=== PATIENT | male | born 1950 | race Asian ===

== ENCOUNTER 2021-08-21 07:06 | Inpatient (IN) | payer MEDICARE, OTHER ==
[~2021-08-21] VITALS: Ht 167.6 cm; Wt 77.1 kg
[2021-08-21] MEDS ORDERED: CARV12.530 PO (07:31)
[2021-08-21] MEDS ORDERED: ISOS60TA58 PO (07:31)
[2021-08-21] MEDS ORDERED: CALC667T8 PO (07:48)
[2021-08-21] MEDS ORDERED: ALLO100T PO (07:48)
[2021-08-21] MEDS ORDERED: ATOR40TA71 PO (07:48)
[2021-08-21] MEDS ORDERED: SIME80TA13 PO (07:48)
[2021-08-21] MEDS ORDERED: ASPI-1450 PO (07:48)
[2021-08-21] MEDS ORDERED: POLY250020 PO (07:48)
[2021-08-21] MEDS ORDERED: FOLI0.8T7 PO (07:48)
[2021-08-21] MEDS ORDERED: NIFE60TA85 PO (07:48)
[2021-08-21] MEDS ORDERED: FAMO20 PO (07:48)
[2021-08-21] MEDS ORDERED: CLOP75TA60 PO (07:48)
[2021-08-21] MEDS ORDERED: SEVE800T7 PO (07:48)
[2021-08-21] MEDS ORDERED: CALC500T37 PO (07:48)
[2021-08-21 07:50] LABS: HEMATOCRIT 31.3 % (41-53); HEMOGLOBIN 10.5 g/dL (13.5-17.5); MEAN CORPUSCULAR HEMOGLOBIN 32.9 pg (26.0-34.0); MEAN CORPUSCULAR HGB CONC 33.6 G/dL (31.0-37.0); MEAN CORPUSCULAR VOLUME 98 fL (80-100); PLATELET COUNT (AUTO) 191 K/uL (150-450); RED BLOOD CELL COUNT(AUTO) 3.19 MIL/uL (4.50-5.90); RED CELL DISTRIBUTION WIDTH 13.6 % (11.5-14.5)
[2021-08-21 07:59] LABS: CALCIUM, TOTAL 8.7 mg/dL (8.8-10.5); CREATININE 11.11 mg/dL (0.60-1.30); POTASSIUM 5.2 mmol/L (3.5-5.1)
[2021-08-21 08:05] LABS: ALBUMIN 3.3 g/dL (3.4-5.0); BILIRUBIN,TOTAL 0.6 mg/dL (0.1-1.0); TOTAL PROTEIN, SERUM 8.1 g/dL (6.4-8.2)
[2021-08-21 08:13] LABS: PROTHROMBIN TIME 10.9 SEC (9.4-11.6)
[2021-08-21] MEDS ORDERED: TICAGRELOR 90 MG TABLET PO ONE (09:00)
[2021-08-21] MEDS ORDERED: MORPHINE SULFATE 4 MG/ML SYRINGE IVP ONE (09:00)
[2021-08-21] MEDS ORDERED: ATORVASTATIN CALCIUM 40 MG TABLET PO ONE (09:00)
[2021-08-21 09:17] LABS: COVID AG,FIA SOURCE NASAL SWAB
[2021-08-21 10:10] LABS: BAND NEUTROPHILS % (MANUAL) 1 % (0-5); EOSINOPHILS % (MANUAL) 14 % (1-6); LYMPHOCYTES % (MANUAL) 32 % (22-44); MONOCYTES % (MANUAL) 2 % (2-9); SEGMENTED NEUTROPHILS % 51 % (40-70)
[2021-08-21] MEDS ORDERED: MORPHINE SULFATE 2 MG/ML SYRINGE IVP PRN (12:00)
[2021-08-21] MEDS ORDERED: ONDANSETRON HCL 4 MG/2 ML VIAL IVP PRN (12:00)
[2021-08-21] MEDS ORDERED: ZOLPIDEM TARTRATE 5 MG TABLET PO PRN (12:00)
[2021-08-21] MEDS ORDERED: MAGNESIUM HYDROXIDE SUSPENSION 30 ML UDCUP PO PRN (12:00)
[2021-08-21] MEDS ORDERED: BISACODYL 10 MG RECTAL RECTAL SUPPOSITORY PR PRN (12:00)
[2021-08-21 12:21] LABS: D-DIMER 0.79 mg/L FEU (0.00-0.50)
[2021-08-21] MEDS: HEPARIN SODIUM,PORCINE 5,000 UNITS/ML VIAL SQ SCH (17:02)
[2021-08-21 18:04] VITALS: BP 137/69
[2021-08-21 20:28] VITALS: BP 148/70
[2021-08-21] MEDS: DOCUSATE SODIUM 100 MG CAPSULE PO SCH (20:38)
[2021-08-21] MEDS: TICAGRELOR 90 MG TABLET PO SCH (20:38)
[2021-08-21] MEDS: SEVELAMER CARBONATE 800 MG TABLET PO SCH (20:38)
[2021-08-21] MEDS ORDERED: CARVEDILOL 12.5 MG TABLET PO SCH (21:00)
[2021-08-21] MEDS: NIFEdipine 30 MG ER TABLET PO SCH (22:52)
[2021-08-22] VITALS (29 sets, daily range): BP systolic 107–178; BP diastolic 58–157
[2021-08-22] MEDS: HEPARIN SODIUM,PORCINE 5,000 UNITS/ML VIAL SQ SCH ×2 (00:41→09:26)
[2021-08-22] MEDS: NITROGLYCERIN 0.4 MG SUBLINGUAL TABLET #25 SL PRN ×2 (05:08→14:30)
[2021-08-22 07:01] LABS: GLUCOMETER DEV NAME(LOC) 5S.2B; GLUCOSE,POINT OF CARE 72 MG/DL (70-110)
[2021-08-22 08:18] LABS: BASOPHILS % (AUTO) 0.7 % (0.0-2.0); EOSINOPHILS % (AUTO) 13.4 % (1.0-6.0); HEMATOCRIT 31.8 % (41-53); HEMOGLOBIN 10.8 g/dL (13.5-17.5); LYMPHOCYTES % (AUTO) 15.6 % (22.0-44.0); MEAN CORPUSCULAR HEMOGLOBIN 33.1 pg (26.0-34.0); MEAN CORPUSCULAR HGB CONC 33.8 G/dL (31.0-37.0); MEAN CORPUSCULAR VOLUME 98 fL (80-100); MONOCYTES # (AUTO) 0.4 K/uL (0.1-1.0); MONOCYTES % (AUTO) 6.5 % (2.0-9.0); NEUTROPHILS # (AUTO) 4.1 K/uL (1.8-7.7); NEUTROPHILS % (AUTO) 63.8 % (40.0-70.0); PLATELET COUNT (AUTO) 203 K/uL (150-450); RED BLOOD CELL COUNT(AUTO) 3.25 MIL/uL (4.50-5.90); RED CELL DISTRIBUTION WIDTH 13.5 % (11.5-14.5)
[2021-08-22 08:37] LABS: ALBUMIN 3.4 g/dL (3.4-5.0); BILIRUBIN,TOTAL 0.6 mg/dL (0.1-1.0); CALCIUM, TOTAL 8.8 mg/dL (8.8-10.5); CREATININE 13.33 mg/dL (0.60-1.30); MAGNESIUM 2.8 mg/dL (1.80-2.40); TOTAL PROTEIN, SERUM 8.1 g/dL (6.4-8.2)
[2021-08-22 08:44] LABS: POTASSIUM 6.2 mmol/L (3.5-5.1)
[2021-08-22] MEDS ORDERED: PANTOPRAZOLE SODIUM 40 MG DR TABLET PO SCH (09:00)
[2021-08-22] MEDS: DOCUSATE SODIUM 100 MG CAPSULE PO SCH ×2 (09:24→21:06)
[2021-08-22] MEDS: SEVELAMER CARBONATE 800 MG TABLET PO SCH ×3 (09:25→18:46)
[2021-08-22] MEDS: ATORVASTATIN CALCIUM 40 MG TABLET PO SCH (09:25)
[2021-08-22] MEDS: ASPIRIN 81 MG CHEWABLE TABLET PO SCH (09:25)
[2021-08-22] MEDS: ISOSORBIDE MONONITRATE 60 MG ER TABLET PO SCH (09:26)
[2021-08-22] MEDS: NIFEdipine 30 MG ER TABLET PO SCH ×2 (09:26→21:07)
[2021-08-22] MEDS: TICAGRELOR 90 MG TABLET PO SCH ×2 (09:26→21:06)
[2021-08-22] MEDS: ALLOPURINOL 100 MG TABLET PO SCH (09:26)
[2021-08-22] MEDS ORDERED: SODIUM CHLORIDE 0.9% 1,000 ML ONE (09:58)
[2021-08-22] MEDS ORDERED: HEPARIN SODIUM 25000 UNITS/D5W 250 ML IV PRN (10:30)
[2021-08-22] MEDS ORDERED: HEPARIN SODIUM,PORCINE 5,000 UNITS/ML VIAL IVP PRN ×2 (10:30)
[2021-08-22] MEDS ORDERED: HEPARIN SODIUM,PORCINE 5,000 UNITS/ML VIAL IVP ONE ×3 (10:30→16:30)
[2021-08-22 11:05] LABS: PROTHROMBIN TIME 10.6 SEC (9.4-11.6)
[2021-08-22] MEDS ORDERED: HEPARIN SODIUM 1000 UNITS/NS 1,000 ML ONE (13:37)
[2021-08-22] MEDS ORDERED: IOHEXOL 300 MG/ML 50 ML VIAL ONE (13:37)
[2021-08-22] MEDS ORDERED: LIDOCAINE/PF 1% 30 ML VIAL ONE (13:37)
[2021-08-22] MEDS ORDERED: IOHEXOL 300 MG/ML 150 ML VIAL ONE ×2 (13:37→15:31)
[2021-08-22] MEDS ORDERED: IOHEXOL 300 MG/ML 100 ML VIAL ONE (13:37)
[2021-08-22] MEDS ORDERED: SODIUM BICARBONATE 50 MEQ/50 ML VIAL ONE (13:37)
[2021-08-22 13:51] LABS: GLUCOMETER DEV NAME(LOC) 5S.2B; GLUCOSE,POINT OF CARE 92 MG/DL (70-110)
[2021-08-22] MEDS ORDERED: FentaNYL CITRATE PF 100 MCG/2 ML VIAL ONE (15:03)
[2021-08-22] MEDS ORDERED: MIDAZOLAM HCL 2 MG/2 ML VIAL ONE (15:04)
[2021-08-22] MEDS ORDERED: VERAPAMIL HCL 2.5 MG/ML 2 ML VIAL ONE (15:12)
[2021-08-22] MEDS ORDERED: FentaNYL CITRATE PF 100 MCG/2 ML VIAL IVP ONE (15:15)
[2021-08-22] MEDS ORDERED: SODIUM CHLORIDE 0.9% 500 ML IV ONE (15:15)
[2021-08-22] MEDS ORDERED: HEPARIN SODIUM 1000 UNITS/NS 1,000 ML IARTER ONE (15:15)
[2021-08-22] MEDS ORDERED: IOHEXOL 300 MG/ML 150 ML VIAL ICOR ONE (15:15)
[2021-08-22] MEDS ORDERED: LIDOCAINE 1% 30 ML/SOD BICARB 8.4% 4 ML SQ ONE (15:15)
[2021-08-22] MEDS ORDERED: MIDAZOLAM HCL 2 MG/2 ML VIAL IVP ONE (15:15)
[2021-08-22] MEDS ORDERED: NITROGLYCERIN 50 MG/D5% WATER 0 ML ONE (15:19)
[2021-08-22] MEDS ORDERED: HydrALAZINE HCL 20 MG/ML VIAL ONE (15:22)
[2021-08-22] MEDS ORDERED: HydrALAZINE HCL 20 MG/ML VIAL IVP ONE (15:30)
[2021-08-22] MEDS ORDERED: ADENOSINE 3 MG/ML 2 ML VIAL ONE (15:51)
[2021-08-22] MEDS ORDERED: HEPARIN SODIUM 1000 UNITS/NS 500 ML ONE (15:58)
[2021-08-22] MEDS ORDERED: SIMETHICONE 80 MG CHEWABLE TABLET CHEW PRN (18:30)
[2021-08-22] MEDS: HYDROCODONE/ACETAMINOPHEN 5-325 MG TABLET PO PRN (18:46)
[2021-08-22 21:06] LABS: GLUCOMETER DEV NAME(LOC) 5S.1B; GLUCOSE,POINT OF CARE 87 MG/DL (70-110)
[2021-08-22] MEDS: CARVEDILOL 6.25 MG TABLET PO SCH (21:07)
[2021-08-22] MEDS: FAMOTIDINE 20 MG TABLET PO SCH (21:07)
[2021-08-22] MEDS: OMEGA-3/DHA/EPA/FISH OIL 1,000 MG CAPSULE PO SCH (21:54)
[2021-08-22] MEDS ORDERED: HEPARIN SODIUM,PORCINE 1,000 UNITS/ML VIAL IVP ONE (22:51)
[2021-08-23] VITALS (13 sets, daily range): BP systolic 113–149; BP diastolic 49–77
[2021-08-23 00:16] LABS: GLUCOMETER DEV NAME(LOC) 5S.2B; GLUCOSE,POINT OF CARE 183 MG/DL (70-110)
[2021-08-23] MEDS: NIFEdipine 30 MG ER TABLET PO SCH ×2 (08:10→23:49)
[2021-08-23] MEDS: DOCUSATE SODIUM 100 MG CAPSULE PO SCH ×2 (08:10→20:59)
[2021-08-23] MEDS: OMEGA-3/DHA/EPA/FISH OIL 1,000 MG CAPSULE PO SCH ×2 (08:10→20:59)
[2021-08-23 08:11] LABS: BASOPHILS % (AUTO) 0.3 % (0.0-2.0); EOSINOPHILS % (AUTO) 10.7 % (1.0-6.0); HEMOGLOBIN 10.3 g/dL (13.5-17.5); LYMPHOCYTES # (AUTO) 0.4 K/uL (1.0-4.8); LYMPHOCYTES % (AUTO) 5.9 % (22.0-44.0); MEAN CORPUSCULAR HEMOGLOBIN 33.4 pg (26.0-34.0); MEAN CORPUSCULAR HGB CONC 34.2 G/dL (31.0-37.0); MEAN CORPUSCULAR VOLUME 98 fL (80-100); MONOCYTES # (AUTO) 0.4 K/uL (0.1-1.0); NEUTROPHILS # (AUTO) 4.7 K/uL (1.8-7.7); NEUTROPHILS % (AUTO) 77.1 % (40.0-70.0); PLATELET COUNT (AUTO) 170 K/uL (150-450); RED BLOOD CELL COUNT(AUTO) 3.08 MIL/uL (4.50-5.90); RED CELL DISTRIBUTION WIDTH 13.7 % (11.5-14.5)
[2021-08-23] MEDS: ALLOPURINOL 100 MG TABLET PO SCH (08:11)
[2021-08-23] MEDS: TICAGRELOR 90 MG TABLET PO SCH ×2 (08:11→20:59)
[2021-08-23] MEDS: ISOSORBIDE MONONITRATE 60 MG ER TABLET PO SCH (08:11)
[2021-08-23] MEDS: FAMOTIDINE 20 MG TABLET PO SCH ×2 (08:11→20:59)
[2021-08-23] MEDS: ATORVASTATIN CALCIUM 40 MG TABLET PO SCH (08:12)
[2021-08-23] MEDS: CARVEDILOL 6.25 MG TABLET PO SCH ×2 (08:12→23:49)
[2021-08-23] MEDS: SEVELAMER CARBONATE 800 MG TABLET PO SCH ×3 (08:12→17:47)
[2021-08-23] MEDS: ASPIRIN 81 MG CHEWABLE TABLET PO SCH (08:12)
[2021-08-23 08:24] LABS: CALCIUM, TOTAL 8.8 mg/dL (8.8-10.5); CREATININE 9.52 mg/dL (0.60-1.30); POTASSIUM 5.6 mmol/L (3.5-5.1)
[2021-08-23 12:01] LABS: GLUCOMETER DEV NAME(LOC) 5N.1C; GLUCOSE,POINT OF CARE 142 MG/DL (70-110)
[2021-08-23 12:01] LABS: GLUCOMETER DEV NAME(LOC) 5N.1C; GLUCOSE,POINT OF CARE 84 MG/DL (70-110)
[2021-08-23 19:56] LABS: GLUCOMETER DEV NAME(LOC) 5S.1B; GLUCOSE,POINT OF CARE 84 MG/DL (70-110)
[2021-08-23 23:41] LABS: GLUCOMETER DEV NAME(LOC) 5S.2B; GLUCOSE,POINT OF CARE 137 MG/DL (70-110)
[2021-08-24] VITALS (19 sets, daily range): BP systolic 106–189; BP diastolic 59–80
[2021-08-24] MEDS ORDERED: DEXTROSE 50%-WATER 25 GM/50 ML SYRINGE IVP ONE ×3 (06:36→08:45)
[2021-08-24] MEDS ORDERED: SODIUM CHLORIDE 0.9% 1,000 ML ONE (07:35)
[2021-08-24 07:39] LABS: BASOPHILS % (AUTO) 0.1 % (0.0-2.0); EOSINOPHILS % (AUTO) 13.2 % (1.0-6.0); HEMATOCRIT 29.7 % (41-53); HEMOGLOBIN 9.9 g/dL (13.5-17.5); LYMPHOCYTES # (AUTO) 0.6 K/uL (1.0-4.8); LYMPHOCYTES % (AUTO) 10.9 % (22.0-44.0); MEAN CORPUSCULAR HEMOGLOBIN 32.9 pg (26.0-34.0); MEAN CORPUSCULAR HGB CONC 33.5 G/dL (31.0-37.0); MEAN CORPUSCULAR VOLUME 98 fL (80-100); MONOCYTES # (AUTO) 0.5 K/uL (0.1-1.0); MONOCYTES % (AUTO) 9.5 % (2.0-9.0); NEUTROPHILS # (AUTO) 3.7 K/uL (1.8-7.7); NEUTROPHILS % (AUTO) 66.3 % (40.0-70.0); PLATELET COUNT (AUTO) 156 K/uL (150-450); RED BLOOD CELL COUNT(AUTO) 3.02 MIL/uL (4.50-5.90); RED CELL DISTRIBUTION WIDTH 13.9 % (11.5-14.5)
[2021-08-24 07:41] LABS: CREATININE 7.48 mg/dL (0.60-1.30); POTASSIUM 4.9 mmol/L (3.5-5.1)
[2021-08-24 07:42] LABS: CALCIUM, TOTAL 8.6 mg/dL (8.8-10.5)
[2021-08-24] MEDS ORDERED: DEXTROSE 5%-0.45% SODIUM CHL 1,000 ML IV STA (08:36)
[2021-08-24 08:41] LABS: GLUCOMETER DEV NAME(LOC) 5N.1C; GLUCOSE,POINT OF CARE 187 MG/DL (70-110)
[2021-08-24] MEDS ORDERED: IOHEXOL 300 MG/ML 100 ML VIAL ONE (09:06)
[2021-08-24] MEDS ORDERED: LIDOCAINE/PF 1% 30 ML VIAL ONE (09:06)
[2021-08-24] MEDS ORDERED: HEPARIN SODIUM 1000 UNITS/NS 1,000 ML ONE (09:06)
[2021-08-24] MEDS ORDERED: SODIUM BICARBONATE 50 MEQ/50 ML VIAL ONE (09:06)
[2021-08-24] MEDS ORDERED: IOHEXOL 300 MG/ML 150 ML VIAL ONE (09:06)
[2021-08-24] MEDS ORDERED: IOHEXOL 300 MG/ML 50 ML VIAL ONE (09:06)
[2021-08-24] MEDS ORDERED: VERAPAMIL HCL 2.5 MG/ML 2 ML VIAL ONE ×2 (10:05→10:41)
[2021-08-24] MEDS ORDERED: NITROGLYCERIN 50 MG/D5% WATER 250 ML ONE ×2 (10:05→10:41)
[2021-08-24] MEDS ORDERED: 0.9% SODIUM CHLORIDE 10 ML SYRINGE IVP ONE (10:06)
[2021-08-24] MEDS ORDERED: MIDAZOLAM HCL 2 MG/2 ML VIAL ONE (10:22)
[2021-08-24] MEDS ORDERED: FentaNYL CITRATE PF 100 MCG/2 ML VIAL ONE (10:22)
[2021-08-24 10:36] LABS: GLUCOMETER DEV NAME(LOC) CATH.; GLUCOSE,POINT OF CARE 110 MG/DL (70-110)
[2021-08-24] MEDS ORDERED: HEPARIN SODIUM,PORCINE 1,000 UNITS/ML 10 ML VIAL ONE (10:41)
[2021-08-24] MEDS ORDERED: FentaNYL CITRATE PF 100 MCG/2 ML VIAL IVP ONE (11:00)
[2021-08-24] MEDS ORDERED: NITROGLYCERIN/D5W 50 MG/250 ML IV BOTTLE IARTER ONE (11:00)
[2021-08-24] MEDS ORDERED: MIDAZOLAM HCL 2 MG/2 ML VIAL IVP ONE (11:00)
[2021-08-24] MEDS ORDERED: VERAPAMIL HCL 2.5 MG/ML 2 ML VIAL IARTER ONE (11:00)
[2021-08-24] MEDS ORDERED: HEPARIN SODIUM,PORCINE 1,000 UNITS/ML 10 ML VIAL IARTER ONE (11:00)
[2021-08-24] MEDS ORDERED: HEPARIN SODIUM 1000 UNITS/NS 1,000 ML IARTER ONE (11:00)
[2021-08-24] MEDS ORDERED: SODIUM CHLORIDE 0.9% 500 ML IV ONE (11:00)
[2021-08-24] MEDS ORDERED: LIDOCAINE 1% 30 ML/SOD BICARB 8.4% 4 ML SQ ONE (11:00)
[2021-08-24] MEDS ORDERED: IOHEXOL 300 MG/ML 150 ML VIAL ICOR ONE (11:00)
[2021-08-24] MEDS ORDERED: HEPARIN SODIUM,PORCINE 5,000 UNITS/ML VIAL IVP ONE (11:15)
[2021-08-24] MEDS ORDERED: IOHEXOL 300 MG/ML 50 ML VIAL ICOR ONE (11:30)
[2021-08-24] MEDS ORDERED: IOHEXOL 300 MG/ML 100 ML VIAL ICOR ONE (11:30)
[2021-08-24] MEDS ORDERED: TICAGRELOR 90 MG TABLET ONE (11:33)
[2021-08-24] MEDS ORDERED: ASPIRIN 81 MG CHEWABLE TABLET ONE (11:33)
[2021-08-24] MEDS: ASPIRIN 81 MG CHEWABLE TABLET PO SCH ×2 (11:34→12:12)
[2021-08-24] MEDS: TICAGRELOR 90 MG TABLET PO SCH ×2 (11:34→20:53)
[2021-08-24] MEDS: ISOSORBIDE MONONITRATE 60 MG ER TABLET PO SCH (12:11)
[2021-08-24] MEDS: SEVELAMER CARBONATE 800 MG TABLET PO SCH ×3 (12:11→20:54)
[2021-08-24] MEDS: OMEGA-3/DHA/EPA/FISH OIL 1,000 MG CAPSULE PO SCH ×2 (12:11→20:54)
[2021-08-24] MEDS: NIFEdipine 30 MG ER TABLET PO SCH ×2 (12:12→20:54)
[2021-08-24] MEDS: ATORVASTATIN CALCIUM 40 MG TABLET PO SCH (12:12)
[2021-08-24] MEDS: CARVEDILOL 6.25 MG TABLET PO SCH ×2 (12:13→21:00)
[2021-08-24] MEDS: DOCUSATE SODIUM 100 MG CAPSULE PO SCH ×2 (12:13→20:54)
[2021-08-24] MEDS: ALLOPURINOL 100 MG TABLET PO SCH (12:13)
[2021-08-24] MEDS: FAMOTIDINE 20 MG TABLET PO SCH ×2 (12:13→20:54)
[2021-08-24 13:46] LABS: GLUCOMETER DEV NAME(LOC) 5S.2B; GLUCOSE,POINT OF CARE 53 MG/DL (70-110)
[2021-08-24] MEDS: NITROGLYCERIN 0.4 MG SUBLINGUAL TABLET #25 SL PRN (15:19)
[2021-08-24] MEDS: ACETAMINOPHEN 325 MG TABLET PO PRN (20:54)
[2021-08-25] VITALS (8 sets, daily range): BP systolic 89–148; BP diastolic 48–72
[2021-08-25] MEDS ORDERED: SODIUM CHLORIDE 0.9% 500 ML IV ONE
[2021-08-25 05:16] LABS: GLUCOMETER DEV NAME(LOC) 5S.2B; GLUCOSE,POINT OF CARE 143 MG/DL (70-110)
[2021-08-25 06:31] LABS: GLUCOMETER DEV NAME(LOC) 5S.1B; GLUCOSE,POINT OF CARE 81 MG/DL (70-110)
[2021-08-25 06:31] LABS: GLUCOMETER DEV NAME(LOC) 5S.1B; GLUCOSE,POINT OF CARE 83 MG/DL (70-110)
[2021-08-25 06:31] LABS: GLUCOMETER DEV NAME(LOC) 5S.1B; GLUCOSE,POINT OF CARE 165 MG/DL (70-110)
[2021-08-25 06:32] LABS: GLUCOMETER DEV NAME(LOC) 5S.1B; GLUCOSE,POINT OF CARE 125 MG/DL (70-110)
[2021-08-25 06:32] LABS: GLUCOMETER DEV NAME(LOC) 5S.1B; GLUCOSE,POINT OF CARE 106 MG/DL (70-110)
[2021-08-25] MEDS: DOCUSATE SODIUM 100 MG CAPSULE PO SCH ×2 (08:17→20:24)
[2021-08-25] MEDS: TICAGRELOR 90 MG TABLET PO SCH ×2 (08:17→20:24)
[2021-08-25] MEDS: ALLOPURINOL 100 MG TABLET PO SCH (08:18)
[2021-08-25] MEDS: OMEGA-3/DHA/EPA/FISH OIL 1,000 MG CAPSULE PO SCH ×2 (08:18→20:22)
[2021-08-25] MEDS: SEVELAMER CARBONATE 800 MG TABLET PO SCH ×3 (08:18→18:10)
[2021-08-25] MEDS: ATORVASTATIN CALCIUM 40 MG TABLET PO SCH (08:18)
[2021-08-25] MEDS: NIFEdipine 30 MG ER TABLET PO SCH ×3 (08:18→21:00)
[2021-08-25] MEDS: CARVEDILOL 6.25 MG TABLET PO SCH ×2 (08:18→20:24)
[2021-08-25] MEDS: ISOSORBIDE MONONITRATE 60 MG ER TABLET PO SCH (08:18)
[2021-08-25] MEDS: FAMOTIDINE 20 MG TABLET PO SCH ×2 (08:18→20:24)
[2021-08-25] MEDS: ACETAMINOPHEN 325 MG TABLET PO PRN ×2 (08:19→18:35)
[2021-08-25 10:01] LABS: GLUCOMETER DEV NAME(LOC) 5N.1C; GLUCOSE,POINT OF CARE 105 MG/DL (70-110)
[2021-08-25 10:29] LABS: CALCIUM, TOTAL 8.7 mg/dL (8.8-10.5); CREATININE 7.25 mg/dL (0.60-1.30); POTASSIUM 5.4 mmol/L (3.5-5.1)
[2021-08-25 11:02] LABS: BASOPHILS % (AUTO) 0.2 % (0.0-2.0); EOSINOPHILS % (AUTO) 6.8 % (1.0-6.0); HEMATOCRIT 29.6 % (41-53); HEMOGLOBIN 9.9 g/dL (13.5-17.5); LYMPHOCYTES # (AUTO) 0.5 K/uL (1.0-4.8); LYMPHOCYTES % (AUTO) 5.3 % (22.0-44.0); MEAN CORPUSCULAR HGB CONC 33.3 G/dL (31.0-37.0); MEAN CORPUSCULAR VOLUME 99 fL (80-100); MONOCYTES # (AUTO) 0.7 K/uL (0.1-1.0); MONOCYTES % (AUTO) 7.9 % (2.0-9.0); NEUTROPHILS % (AUTO) 79.8 % (40.0-70.0); PLATELET COUNT (AUTO) 150 K/uL (150-450); RED BLOOD CELL COUNT(AUTO) 2.99 MIL/uL (4.50-5.90); RED CELL DISTRIBUTION WIDTH 13.8 % (11.5-14.5)
[2021-08-25] MEDS ORDERED: CETIRIZINE HCL 10 MG TABLET PO ONE (12:45)
[2021-08-25] MEDS: DOCOSANOL 10% 2 GM CREAM TP SCH ×3 (14:46→20:21)
[2021-08-25] MEDS: HYDROCORTISONE 2.5% 30 GM CREAM TP SCH ×2 (14:46→20:21)
[2021-08-25] MEDS: CALCIUM CARBONATE 500 MG CHEWABLE TABLET CHEW PRN (18:10)
[2021-08-25 18:17] LABS: GLUCOMETER DEV NAME(LOC) 5S.2B; GLUCOSE,POINT OF CARE 98 MG/DL (70-110)
[2021-08-25 18:17] LABS: GLUCOMETER DEV NAME(LOC) 5S.1B; GLUCOSE,POINT OF CARE 104 MG/DL (70-110)
[2021-08-25] MEDS: NITROGLYCERIN 0.4 MG SUBLINGUAL TABLET #25 SL PRN ×3 (18:36→18:46)
[2021-08-25] MEDS: PANTOPRAZOLE SODIUM 40 MG DR TABLET PO SCH (20:24)
[2021-08-25 21:30] LABS: GLUCOMETER DEV NAME(LOC) 5S.1B; GLUCOSE,POINT OF CARE 158 MG/DL (70-110)
[2021-08-25] MEDS: HYDROCODONE/ACETAMINOPHEN 5-325 MG TABLET PO PRN (22:27)
[2021-08-26] VITALS (15 sets, daily range): BP systolic 106–162; BP diastolic 55–82
[2021-08-26] MEDS: DOCOSANOL 10% 2 GM CREAM TP SCH ×5 (05:10→21:22)
[2021-08-26 07:33] LABS: BASOPHILS % (AUTO) 0.4 % (0.0-2.0); EOSINOPHILS % (AUTO) 11.4 % (1.0-6.0); HEMATOCRIT 28.1 % (41-53); HEMOGLOBIN 9.5 g/dL (13.5-17.5); LYMPHOCYTES # (AUTO) 0.7 K/uL (1.0-4.8); LYMPHOCYTES % (AUTO) 11.2 % (22.0-44.0); MEAN CORPUSCULAR HEMOGLOBIN 33.2 pg (26.0-34.0); MEAN CORPUSCULAR HGB CONC 33.8 G/dL (31.0-37.0); MEAN CORPUSCULAR VOLUME 98 fL (80-100); MONOCYTES # (AUTO) 0.8 K/uL (0.1-1.0); MONOCYTES % (AUTO) 11.9 % (2.0-9.0); NEUTROPHILS # (AUTO) 4.3 K/uL (1.8-7.7); NEUTROPHILS % (AUTO) 65.1 % (40.0-70.0); PLATELET COUNT (AUTO) 137 K/uL (150-450); RED BLOOD CELL COUNT(AUTO) 2.86 MIL/uL (4.50-5.90); RED CELL DISTRIBUTION WIDTH 13.9 % (11.5-14.5)
[2021-08-26 07:36] LABS: CALCIUM, TOTAL 9.1 mg/dL (8.8-10.5); CREATININE 10.16 mg/dL (0.60-1.30); POTASSIUM 5.5 mmol/L (3.5-5.1)
[2021-08-26 07:42] LABS: ALBUMIN 2.9 g/dL (3.4-5.0); BILIRUBIN,TOTAL 0.4 mg/dL (0.1-1.0); TOTAL PROTEIN, SERUM 7.8 g/dL (6.4-8.2)
[2021-08-26] MEDS: SEVELAMER CARBONATE 800 MG TABLET PO SCH ×3 (08:09→17:34)
[2021-08-26] MEDS: PANTOPRAZOLE SODIUM 40 MG DR TABLET PO SCH (08:09)
[2021-08-26] MEDS: TICAGRELOR 90 MG TABLET PO SCH ×2 (08:09→21:18)
[2021-08-26] MEDS: OMEGA-3/DHA/EPA/FISH OIL 1,000 MG CAPSULE PO SCH ×2 (08:09→21:20)
[2021-08-26] MEDS: ASPIRIN 81 MG CHEWABLE TABLET PO SCH (08:10)
[2021-08-26] MEDS: FAMOTIDINE 20 MG TABLET PO SCH ×2 (08:10→21:21)
[2021-08-26] MEDS: ATORVASTATIN CALCIUM 40 MG TABLET PO SCH (08:10)
[2021-08-26] MEDS: ALLOPURINOL 100 MG TABLET PO SCH (08:12)
[2021-08-26] MEDS: DOCUSATE SODIUM 100 MG CAPSULE PO SCH ×2 (09:00→21:19)
[2021-08-26] MEDS ORDERED: CETIRIZINE HCL 10 MG TABLET PO ONE (10:00)
[2021-08-26] MEDS ORDERED: MethylPREDNISolone SOD SUCC 40 MG/ML VIAL IVP SCH ×2 (10:30→16:00)
[2021-08-26] MEDS: HYDROCORTISONE 2.5% 30 GM CREAM TP SCH ×2 (10:51→21:21)
[2021-08-26] MEDS ORDERED: MethylPREDNISolone SOD SUCC 125 MG/2 ML VIAL IVP ONE (11:30)
[2021-08-26 12:17] LABS: GLUCOMETER DEV NAME(LOC) 5S.1B; GLUCOSE,POINT OF CARE 112 MG/DL (70-110)
[2021-08-26 12:17] LABS: GLUCOMETER DEV NAME(LOC) 5S.1B; GLUCOSE,POINT OF CARE 102 MG/DL (70-110)
[2021-08-26 12:21] LABS: GLUCOMETER DEV NAME(LOC) 5N.3; GLUCOSE,POINT OF CARE 126 MG/DL (70-110)
[2021-08-26] MEDS: NITROGLYCERIN 0.4 MG SUBLINGUAL TABLET #25 SL PRN ×2 (12:55→16:44)
[2021-08-26] MEDS: NIFEdipine 30 MG ER TABLET PO SCH ×2 (17:20→21:00)
[2021-08-26] MEDS: CARVEDILOL 6.25 MG TABLET PO SCH ×2 (17:20→21:19)
[2021-08-26] MEDS: ISOSORBIDE MONONITRATE 60 MG ER TABLET PO SCH (17:21)
[2021-08-26] MEDS: MethylPREDNISolone SOD SUCC 40 MG/ML VIAL IVP SCH ×2 (17:34→23:44)
[2021-08-26 19:41] LABS: GLUCOMETER DEV NAME(LOC) 5N.3; GLUCOSE,POINT OF CARE 201 MG/DL (70-110)
[2021-08-26] MEDS: MAALOX/LIDOCAINE/NYSTATIN SUSP 5 ML ORAL.SYG MM SCH ×2 (21:18→21:23)
[2021-08-26] MEDS: HYPROMELLOSE 0.5% 15 ML OPHTHALMIC SOLUTION OU SCH (21:18)
[2021-08-26] MEDS: CLOBETASOL 0.05% 15 GM OINTMENT TP SCH (21:21)
[2021-08-26] MEDS ORDERED: INSULIN LISPRO 100 UNITS/ML SQ PRN (22:15)
[2021-08-26] MEDS ORDERED: DEXTROSE 50%-WATER 25 GM/50 ML SYRINGE IVP PRN (22:15)
[2021-08-26] MEDS: INSULIN LISPRO 100 UNITS/ML SQ PRN (22:19)
[2021-08-26] MEDS: HYDROCODONE/ACETAMINOPHEN 5-325 MG TABLET PO PRN (23:44)
[2021-08-27] VITALS (14 sets, daily range): BP systolic 100–147; BP diastolic 52–81
[2021-08-27 05:21] LABS: GLUCOMETER DEV NAME(LOC) 5S.1B; GLUCOSE,POINT OF CARE 393 MG/DL (70-110)
[2021-08-27] MEDS: DOCOSANOL 10% 2 GM CREAM TP SCH ×5 (06:05→20:38)
[2021-08-27] MEDS: INSULIN LISPRO 100 UNITS/ML SQ PRN ×3 (06:16→23:32)
[2021-08-27] MEDS ORDERED: EPOETIN ALFA 10,000 UNITS/ML 2 ML VIAL SQ SCH (09:00)
[2021-08-27] MEDS: NIFEdipine 30 MG ER TABLET PO SCH ×2 (09:00→20:36)
[2021-08-27 09:16] LABS: GLUCOMETER DEV NAME(LOC) 5S.2B; GLUCOSE,POINT OF CARE 160 MG/DL (70-110)
[2021-08-27] MEDS: OMEGA-3/DHA/EPA/FISH OIL 1,000 MG CAPSULE PO SCH ×2 (09:34→20:36)
[2021-08-27] MEDS: SEVELAMER CARBONATE 800 MG TABLET PO SCH ×3 (09:35→20:36)
[2021-08-27] MEDS: ASPIRIN 81 MG CHEWABLE TABLET PO SCH (09:35)
[2021-08-27] MEDS: ISOSORBIDE MONONITRATE 60 MG ER TABLET PO SCH (09:37)
[2021-08-27] MEDS: ACETAMINOPHEN 325 MG TABLET PO PRN (09:39)
[2021-08-27] MEDS: ATORVASTATIN CALCIUM 40 MG TABLET PO SCH (09:39)
[2021-08-27] MEDS: FAMOTIDINE 20 MG TABLET PO SCH ×2 (09:40→20:36)
[2021-08-27] MEDS: TICAGRELOR 90 MG TABLET PO SCH ×2 (09:43→20:37)
[2021-08-27] MEDS: CALCIUM CARBONATE 500 MG CHEWABLE TABLET CHEW PRN (09:43)
[2021-08-27] MEDS: ALLOPURINOL 100 MG TABLET PO SCH (09:44)
[2021-08-27] MEDS: DOCUSATE SODIUM 100 MG CAPSULE PO SCH ×2 (09:44→20:36)
[2021-08-27] MEDS: MethylPREDNISolone SOD SUCC 40 MG/ML VIAL IVP SCH ×3 (09:45→23:28)
[2021-08-27] MEDS: PANTOPRAZOLE SODIUM 40 MG DR TABLET PO SCH (09:45)
[2021-08-27] MEDS: HYPROMELLOSE 0.5% 15 ML OPHTHALMIC SOLUTION OU SCH ×4 (09:54→20:37)
[2021-08-27] MEDS: MAALOX/LIDOCAINE/NYSTATIN SUSP 5 ML ORAL.SYG MM SCH ×5 (09:54→20:36)
[2021-08-27] MEDS: CLOBETASOL 0.05% 15 GM OINTMENT TP SCH ×2 (09:55→20:37)
[2021-08-27] MEDS: HYDROCORTISONE 2.5% 30 GM CREAM TP SCH ×2 (09:55→20:38)
[2021-08-27] MEDS: CARVEDILOL 6.25 MG TABLET PO SCH ×2 (12:47→20:36)
[2021-08-27 14:10] LABS: BASOPHILS % (AUTO) 0.1 % (0.0-2.0); EOSINOPHILS % (AUTO) 0 % (1.0-6.0); HEMATOCRIT 26.7 % (41-53); LYMPHOCYTES # (AUTO) 0.2 K/uL (1.0-4.8); LYMPHOCYTES % (AUTO) 3.6 % (22.0-44.0); MEAN CORPUSCULAR HGB CONC 33.7 G/dL (31.0-37.0); MEAN CORPUSCULAR VOLUME 98 fL (80-100); MONOCYTES # (AUTO) 0.2 K/uL (0.1-1.0); MONOCYTES % (AUTO) 3.6 % (2.0-9.0); NEUTROPHILS # (AUTO) 5.4 K/uL (1.8-7.7); PLATELET COUNT (AUTO) 174 K/uL (150-450); RED BLOOD CELL COUNT(AUTO) 2.73 MIL/uL (4.50-5.90); RED CELL DISTRIBUTION WIDTH 13.8 % (11.5-14.5)
[2021-08-27 14:12] LABS: NEUTROPHILS % (AUTO) 92.7 % (40.0-70.0)
[2021-08-27 14:18] LABS: CALCIUM, TOTAL 9.1 mg/dL (8.8-10.5); CREATININE 8.29 mg/dL (0.60-1.30); POTASSIUM 4.9 mmol/L (3.5-5.1)
[2021-08-27] MEDS ORDERED: SODIUM CHLORIDE 0.9% 1,000 ML ONE (15:34)
[2021-08-27 20:31] LABS: GLUCOMETER DEV NAME(LOC) 5N.3; GLUCOSE,POINT OF CARE 318 MG/DL (70-110)
[2021-08-27 20:36] LABS: GLUCOMETER DEV NAME(LOC) 5S.1B; GLUCOSE,POINT OF CARE 199 MG/DL (70-110)
[2021-08-28 04:11] VITALS: BP 141/62
[2021-08-28 06:16] LABS: GLUCOMETER DEV NAME(LOC) 5S.1B; GLUCOSE,POINT OF CARE 327 MG/DL (70-110)
[2021-08-28] MEDS: DOCOSANOL 10% 2 GM CREAM TP SCH ×5 (06:18→20:38)
[2021-08-28 08:05] VITALS: BP 147/64
[2021-08-28] MEDS: MethylPREDNISolone SOD SUCC 40 MG/ML VIAL IVP SCH ×2 (08:39→16:23)
[2021-08-28] MEDS: MAALOX/LIDOCAINE/NYSTATIN SUSP 5 ML ORAL.SYG MM SCH ×5 (08:41→20:37)
[2021-08-28] MEDS: OMEGA-3/DHA/EPA/FISH OIL 1,000 MG CAPSULE PO SCH ×2 (08:42→20:37)
[2021-08-28] MEDS: DOCUSATE SODIUM 100 MG CAPSULE PO SCH ×2 (08:42→20:37)
[2021-08-28] MEDS: ATORVASTATIN CALCIUM 40 MG TABLET PO SCH (08:42)
[2021-08-28] MEDS: FAMOTIDINE 20 MG TABLET PO SCH ×2 (08:43→20:36)
[2021-08-28] MEDS: ASPIRIN 81 MG CHEWABLE TABLET PO SCH (08:43)
[2021-08-28] MEDS: ISOSORBIDE MONONITRATE 60 MG ER TABLET PO SCH (08:43)
[2021-08-28] MEDS: NIFEdipine 30 MG ER TABLET PO SCH ×2 (08:44→20:37)
[2021-08-28] MEDS: PANTOPRAZOLE SODIUM 40 MG DR TABLET PO SCH (08:44)
[2021-08-28] MEDS: TICAGRELOR 90 MG TABLET PO SCH ×2 (08:44→20:37)
[2021-08-28] MEDS: HYDROCODONE/ACETAMINOPHEN 5-325 MG TABLET PO PRN ×2 (08:44→13:54)
[2021-08-28] MEDS: SEVELAMER CARBONATE 800 MG TABLET PO SCH ×3 (08:45→18:17)
[2021-08-28] MEDS: CARVEDILOL 6.25 MG TABLET PO SCH (08:46)
[2021-08-28] MEDS: HYPROMELLOSE 0.5% 15 ML OPHTHALMIC SOLUTION OU SCH ×4 (08:47→20:37)
[2021-08-28] MEDS: HYDROCORTISONE 2.5% 30 GM CREAM TP SCH ×2 (08:47→20:38)
[2021-08-28] MEDS: CLOBETASOL 0.05% 15 GM OINTMENT TP SCH ×2 (08:48→20:38)
[2021-08-28 10:17] LABS: BASOPHILS % (AUTO) 0.1 % (0.0-2.0); EOSINOPHILS % (AUTO) 0 % (1.0-6.0); HEMOGLOBIN 10.1 g/dL (13.5-17.5); LYMPHOCYTES # (AUTO) 0.3 K/uL (1.0-4.8); LYMPHOCYTES % (AUTO) 4.7 % (22.0-44.0); MEAN CORPUSCULAR HEMOGLOBIN 33.2 pg (26.0-34.0); MEAN CORPUSCULAR HGB CONC 33.7 G/dL (31.0-37.0); MEAN CORPUSCULAR VOLUME 98 fL (80-100); MONOCYTES # (AUTO) 0.4 K/uL (0.1-1.0); MONOCYTES % (AUTO) 5.1 % (2.0-9.0); NEUTROPHILS # (AUTO) 6.2 K/uL (1.8-7.7); PLATELET COUNT (AUTO) 207 K/uL (150-450); RED BLOOD CELL COUNT(AUTO) 3.05 MIL/uL (4.50-5.90); RED CELL DISTRIBUTION WIDTH 14.2 % (11.5-14.5)
[2021-08-28 10:22] LABS: NEUTROPHILS % (AUTO) 90.1 % (40.0-70.0)
[2021-08-28 12:06] LABS: CALCIUM, TOTAL 9.5 mg/dL (8.8-10.5); CREATININE 6.91 mg/dL (0.60-1.30); POTASSIUM 5.2 mmol/L (3.5-5.1)
[2021-08-28 12:16] VITALS: BP 135/79
[2021-08-28] MEDS: INSULIN LISPRO 100 UNITS/ML SQ PRN ×3 (12:23→20:43)
[2021-08-28 16:00] VITALS: BP 99/57
[2021-08-28 19:39] VITALS: BP 126/62
[2021-08-28 23:35] VITALS: BP 117/52
[2021-08-29] VITALS (16 sets, daily range): BP systolic 123–168; BP diastolic 51–86
[2021-08-29] MEDS: CARVEDILOL 6.25 MG TABLET PO SCH ×2 (00:08→08:59)
[2021-08-29] MEDS: MethylPREDNISolone SOD SUCC 40 MG/ML VIAL IVP SCH ×3 (00:09→15:09)
[2021-08-29] MEDS: NITROGLYCERIN 0.4 MG SUBLINGUAL TABLET #25 SL PRN (02:28)
[2021-08-29] MEDS: DOCOSANOL 10% 2 GM CREAM TP SCH ×4 (06:10→17:42)
[2021-08-29 07:32] LABS: CALCIUM, TOTAL 9.7 mg/dL (8.8-10.5); CREATININE 8.64 mg/dL (0.60-1.30)
[2021-08-29 07:44] LABS: POTASSIUM 6.5 mmol/L (3.5-5.1)
[2021-08-29 08:00] LABS: BASOPHILS % (AUTO) 0.1 % (0.0-2.0); EOSINOPHILS % (AUTO) 0 % (1.0-6.0); HEMATOCRIT 28.7 % (41-53); HEMOGLOBIN 9.6 g/dL (13.5-17.5); LYMPHOCYTES # (AUTO) 0.4 K/uL (1.0-4.8); LYMPHOCYTES % (AUTO) 6.1 % (22.0-44.0); MEAN CORPUSCULAR HEMOGLOBIN 32.9 pg (26.0-34.0); MEAN CORPUSCULAR HGB CONC 33.5 G/dL (31.0-37.0); MEAN CORPUSCULAR VOLUME 98 fL (80-100); MONOCYTES # (AUTO) 0.3 K/uL (0.1-1.0); MONOCYTES % (AUTO) 5.3 % (2.0-9.0); NEUTROPHILS # (AUTO) 5.2 K/uL (1.8-7.7); PLATELET COUNT (AUTO) 192 K/uL (150-450); RED BLOOD CELL COUNT(AUTO) 2.92 MIL/uL (4.50-5.90); RED CELL DISTRIBUTION WIDTH 14.1 % (11.5-14.5)
[2021-08-29 08:03] LABS: NEUTROPHILS % (AUTO) 88.5 % (40.0-70.0)
[2021-08-29] MEDS ORDERED: DEXTROSE 50%-WATER 25 GM/50 ML SYRINGE IVP ONE (08:30)
[2021-08-29] MEDS ORDERED: INSULIN REGULAR, HUMAN 100 UNITS/ML IVP ONE (08:30)
[2021-08-29] MEDS ORDERED: CALCIUM GLUCONATE 100 MG/ML 10 ML IVP ONE (08:30)
[2021-08-29] MEDS: NIFEdipine 30 MG ER TABLET PO SCH ×2 (08:35→10:05)
[2021-08-29] MEDS: SEVELAMER CARBONATE 800 MG TABLET PO SCH ×3 (08:47→17:41)
[2021-08-29] MEDS: MAALOX/LIDOCAINE/NYSTATIN SUSP 5 ML ORAL.SYG MM SCH ×4 (08:55→17:41)
[2021-08-29] MEDS: TICAGRELOR 90 MG TABLET PO SCH (08:56)
[2021-08-29] MEDS: ASPIRIN 81 MG CHEWABLE TABLET PO SCH (08:56)
[2021-08-29] MEDS: HYPROMELLOSE 0.5% 15 ML OPHTHALMIC SOLUTION OU SCH ×3 (08:56→15:12)
[2021-08-29] MEDS: DOCUSATE SODIUM 100 MG CAPSULE PO SCH (08:56)
[2021-08-29] MEDS: ATORVASTATIN CALCIUM 40 MG TABLET PO SCH (08:57)
[2021-08-29] MEDS: PANTOPRAZOLE SODIUM 40 MG DR TABLET PO SCH (08:57)
[2021-08-29] MEDS: FAMOTIDINE 20 MG TABLET PO SCH (08:57)
[2021-08-29] MEDS: OMEGA-3/DHA/EPA/FISH OIL 1,000 MG CAPSULE PO SCH (08:57)
[2021-08-29] MEDS: CLOBETASOL 0.05% 15 GM OINTMENT TP SCH (08:58)
[2021-08-29] MEDS: ISOSORBIDE MONONITRATE 60 MG ER TABLET PO SCH (08:58)
[2021-08-29] MEDS: HYDROCORTISONE 2.5% 30 GM CREAM TP SCH (08:58)
[2021-08-29] MEDS ORDERED: NIFE-40 PO (12:13)
[2021-08-29] MEDS ORDERED: PRED-549 PO (12:13)
[2021-08-29] MEDS ORDERED: ATOR40TA71 PO (12:13)
[2021-08-29] MEDS ORDERED: MAGIC5L MM (12:13)
[2021-08-29] MEDS ORDERED: PANT-31 PO (12:13)
[2021-08-29] MEDS ORDERED: DOCO2CRE4 TP (12:13)
[2021-08-29] MEDS ORDERED: HYPR15DR23 OU (12:13)
[2021-08-29] MEDS ORDERED: TICA90TA PO (12:13)
[2021-08-29] MEDS ORDERED: PRED-554 PO (12:13)
[2021-08-29] MEDS ORDERED: PRED-729 PO (12:13)
[2021-08-29] MEDS ORDERED: HYDR30CR3 TP (12:13)
[2021-08-29] MEDS ORDERED: CLOB15OI17 TP (12:13)
[2021-08-29] MEDS ORDERED: CARV6 PO (12:13)
[2021-08-29] MEDS ORDERED: SEVE800T17 PO (12:13)
[2021-08-29] MEDS ORDERED: ISOS60TA77 PO (12:13)
[2021-08-29] MEDS ORDERED: ASPI-1450 PO (12:13)
[2021-08-29] MEDS ORDERED: FAMO20 PO (12:13)
[2021-08-29] MEDS: INSULIN LISPRO 100 UNITS/ML SQ PRN ×2 (12:19→17:49)
[2021-08-29 12:36] LABS: ABG BASE EXCESS -5.4 mmol/L (-2.0-3.0); ABG CARBOXYHEMOGLOBIN 0.5 % (0.0-1.5); ABG HCO3 20.4 mmol/L (22.0-26.0); ABG METHEMOGLOBIN 0.3 % (0.0-1.5); ABG OXYGEN CONTENT 14.1 mL/dL (15.0-23.0); ABG OXYHEMOGLOBIN 96.2 % (94.0-100.0); ABG PCO2 36 mmHg (35-45); ABG PH 7.364 (7.35-7.450); ABG TOTAL HEMOGLOBIN 10.3 G/dL (12.0-18.0); O2 DEVICE,BLOOD GAS ROOM AIR (ROOM AIR); PO2, ARTERIAL BG 98.2 mmHg (79.0-87.0); SITE, BLOOD GAS RT BRACHIAL; SOURCE, BLOOD GAS ARTERIAL; TEMPERATURE, FAHRENHEIT, BG 97.9 FAHREN (96.0-98.6)
[2021-08-30] MEDS ORDERED: SYRI-590 SQ (16:08)
[2021-08-30] MEDS ORDERED: LANC1KIT37 MC (16:08)
[2021-08-30] MEDS ORDERED: MAGIC240 PO (16:08)
[2021-08-31 05:32] LABS: GLUCOMETER DEV NAME(LOC) 5N.1C; GLUCOSE,POINT OF CARE 320 MG/DL (70-110)
[2021-08-31 05:32] LABS: GLUCOMETER DEV NAME(LOC) 5N.1C; GLUCOSE,POINT OF CARE 341 MG/DL (70-110)
[2021-08-31 05:32] LABS: GLUCOMETER DEV NAME(LOC) 5N.1C; GLUCOSE,POINT OF CARE 165 MG/DL (70-110)
[2021-08-31 05:32] LABS: GLUCOMETER DEV NAME(LOC) 5N.1C; GLUCOSE,POINT OF CARE 154 MG/DL (70-110)
[2021-08-31 05:32] LABS: GLUCOMETER DEV NAME(LOC) 5N.1C; GLUCOSE,POINT OF CARE 214 MG/DL (70-110)
[2021-08-31 06:27] LABS: GLUCOMETER DEV NAME(LOC) 5S.2B; GLUCOSE,POINT OF CARE 228 MG/DL (70-110)
[2021-08-31 06:27] LABS: GLUCOMETER DEV NAME(LOC) 5S.2B; GLUCOSE,POINT OF CARE 191 MG/DL (70-110)
[2021-08-31 06:32] LABS: GLUCOMETER DEV NAME(LOC) 5N.3; GLUCOSE,POINT OF CARE 195 MG/DL (70-110)
[2021-08-31 08:26] LABS: GLUCOMETER DEV NAME(LOC) 5S.1B; GLUCOSE,POINT OF CARE 196 MG/DL (70-110)
== END 2021-08-29 18:30 | disposition home or self-care (01) | DRG 246 ==
LOC: EMS 07:06 → 5S 11:57
PROVIDERS: ADMIT Internal Medicine; ATTEND Internal Medicine
PROC: 027034Z Dilation of Coronary Artery, One Artery with Drug-eluting Intraluminal Device, Percutaneous Approach (ICD-10-PCS; principal; 2021-08-22)
PROC: 5A1D70Z Performance of Urinary Filtration, Intermittent, Less than 6 Hours Per Day (ICD-10-PCS; 2021-08-22)
PROC: 4A023N7 Measurement of Cardiac Sampling and Pressure, Left Heart, Percutaneous Approach (ICD-10-PCS; 2021-08-22)
PROC: B2111ZZ Fluoroscopy of Multiple Coronary Arteries using Low Osmolar Contrast (ICD-10-PCS; 2021-08-22)
PROC: B2181ZZ Fluoroscopy of Left Internal Mammary Bypass Graft using Low Osmolar Contrast (ICD-10-PCS; 2021-08-22)
PROC: B2131ZZ Fluoroscopy of Multiple Coronary Artery Bypass Grafts using Low Osmolar Contrast (ICD-10-PCS; 2021-08-22)
PROC: B41F1ZZ Fluoroscopy of Right Lower Extremity Arteries using Low Osmolar Contrast (ICD-10-PCS; 2021-08-22)
PROC: 5A1D70Z Performance of Urinary Filtration, Intermittent, Less than 6 Hours Per Day (ICD-10-PCS; 2021-08-24)
PROC: 02713ZZ Dilation of Coronary Artery, Two Arteries, Percutaneous Approach (ICD-10-PCS; 2021-08-24)
PROC: 4A023N7 Measurement of Cardiac Sampling and Pressure, Left Heart, Percutaneous Approach (ICD-10-PCS; 2021-08-24)
PROC: B2111ZZ Fluoroscopy of Multiple Coronary Arteries using Low Osmolar Contrast (ICD-10-PCS; 2021-08-24)
PROC: 5A1D70Z Performance of Urinary Filtration, Intermittent, Less than 6 Hours Per Day (ICD-10-PCS; 2021-08-26)
PROC: 5A1D70Z Performance of Urinary Filtration, Intermittent, Less than 6 Hours Per Day (ICD-10-PCS; 2021-08-27)
PROC: 5A1D70Z Performance of Urinary Filtration, Intermittent, Less than 6 Hours Per Day (ICD-10-PCS; 2021-08-29)
DX: T82.855A Stenosis of coronary artery stent, initial encounter (principal); I21.4 Non-ST elevation (NSTEMI) myocardial infarction; N18.6 End stage renal disease; I12.0 Hypertensive chronic kidney disease with stage 5 chronic kidney disease or end stage renal disease; E87.1 Hypo-osmolality and hyponatremia; E11.22 Type 2 diabetes mellitus with diabetic chronic kidney disease; E78.5 Hyperlipidemia, unspecified; E87.5 Hyperkalemia; D63.1 Anemia in chronic kidney disease; T50.8X5A Adverse effect of diagnostic agents, initial encounter; T78.3XXA Angioneurotic edema, initial encounter; E21.3 Hyperparathyroidism, unspecified; Z20.822 Contact with and (suspected) exposure to COVID-19; I25.10 Atherosclerotic heart disease of native coronary artery without angina pectoris; Y83.8 Other surgical procedures as the cause of abnormal reaction of the patient, or of later complication, without mention of misadventure at the time of the procedure; Z79.899 Other long term (current) drug therapy; Z85.528 Personal history of other malignant neoplasm of kidney; Z86.16 Personal history of COVID-19; Z90.81 Acquired absence of spleen; Z95.1 Presence of aortocoronary bypass graft; Z99.2 Dependence on renal dialysis; Z98.61 Coronary angioplasty status; Z79.02 Long term (current) use of antithrombotics/antiplatelets; Y92.89 Other specified places as the place of occurrence of the external cause
CPT/HCPCS: 36600; 71045; 80048; 80053; 82784; 82805; 82962; 83735; 83880; 84484; 85025; 85379; 85610; 85730; 87040; 87081; 87340; 90935; 92920; 92928; 93005; 93306; 93970; 97162; 99285; J0153; J0360; J0610; J0885; J1644; J1815; J2250; J2270; J2920; J2930; J3010; J3490; J7030; J7040; Q9967; 36415-L1; 36415-TC; Z7610

== ENCOUNTER → 2021-09-20 | Outpatient (CLI) | payer MEDICARE, OTHER ==
[~2021-09-20] VITALS: Ht 167.6 cm; Wt 76.0 kg
[~2021-09-20] MED LIST: ALLO100T PO; ASPI-1450 PO; ATOR40TA71 PO; CALC500T37 PO; CALC667T8 PO; CARV6 PO; CLOB15OI17 TP; DOCO2CRE4 TP; FAMO20 PO; FOLI0.8T7 PO; HYDR30CR3 TP; HYPR15DR23 OU; ISOS60TA77 PO; LANC1KIT37 MC; MAGIC240 PO; MAGIC5L MM; NIFE-40 PO; PANT-31 PO; POLY250020 PO; PRED-549 PO; PRED-554 PO; PRED-729 PO; SEVE800T17 PO; SIME80TA13 PO; SYRI-590 SQ; TICA90TA PO
[2021-09-20 09:54] VITALS: BP 115/58
== END | disposition home or self-care (01) ==
LOC: SRCNTR 09:39
PROVIDERS: ATTEND Internal Medicine
DX: I12.9 Hypertensive chronic kidney disease with stage 1 through stage 4 chronic kidney disease, or unspecified chronic kidney disease (principal); E11.22 Type 2 diabetes mellitus with diabetic chronic kidney disease; N18.6 End stage renal disease; I25.10 Atherosclerotic heart disease of native coronary artery without angina pectoris; I21.A1 Myocardial infarction type 2; Z95.5 Presence of coronary angioplasty implant and graft; Z99.2 Dependence on renal dialysis; Z88.8 Allergy status to other drugs, medicaments and biological substances
CPT/HCPCS: G0463

== ENCOUNTER → 2021-12-20 | Outpatient (CLI) | payer MEDICARE, OTHER ==
[~2021-12-20] VITALS: Ht 167.6 cm; Wt 74.0 kg
[~2021-12-20] MED LIST changes: -CLOB15OI17 TP; -DOCO2CRE4 TP; -FAMO20 PO; -HYDR30CR3 TP; -MAGIC240 PO; -MAGIC5L MM
[2021-12-20 10:26] VITALS: BP 75/46
== END | disposition home or self-care (01) ==
LOC: SRCNTR 09:56
PROVIDERS: ATTEND Internal Medicine
DX: I12.0 Hypertensive chronic kidney disease with stage 5 chronic kidney disease or end stage renal disease (principal); E11.22 Type 2 diabetes mellitus with diabetic chronic kidney disease; N18.6 End stage renal disease; I25.10 Atherosclerotic heart disease of native coronary artery without angina pectoris; C64.9 Malignant neoplasm of unspecified kidney, except renal pelvis; Z99.2 Dependence on renal dialysis
CPT/HCPCS: G0463

== ENCOUNTER 2022-03-01 00:50 | Emergency (ER) | payer MEDICARE, OTHER ==
[~2022-03-01] VITALS: Ht 167.6 cm; Wt 73.5 kg
[2022-03-01 01:45] LABS: HEMATOCRIT 34.9 % (41-53); HEMOGLOBIN 11.4 g/dL (13.5-17.5); LYMPHOCYTES # (AUTO) 1.3 K/uL (1.0-4.8); LYMPHOCYTES % (AUTO) 22.1 % (22.0-44.0); MEAN CORPUSCULAR HEMOGLOBIN 32.8 pg (26.0-34.0); MEAN CORPUSCULAR HGB CONC 32.6 G/dL (31.0-37.0); MEAN CORPUSCULAR VOLUME 101 fL (80-100); MONOCYTES # (AUTO) 0.5 K/uL (0.1-1.0); MONOCYTES % (AUTO) 8.3 % (2.0-9.0); NEUTROPHILS # (AUTO) 2.8 K/uL (1.8-7.7); NEUTROPHILS % (AUTO) 49.9 % (40.0-70.0); PLATELET COUNT (AUTO) 201 K/uL (150-450); RED BLOOD CELL COUNT(AUTO) 3.47 MIL/uL (4.50-5.90); RED CELL DISTRIBUTION WIDTH 15.1 % (11.5-14.5)
[2022-03-01 01:52] LABS: EOSINOPHILS % (AUTO) 18.7 % (1.0-6.0)
[2022-03-01 01:55] LABS: CREATININE 11.7 mg/dL (0.60-1.30); POTASSIUM 4.9 mmol/L (3.5-5.1)
[2022-03-01 02:01] LABS: ALBUMIN 3.7 g/dL (3.4-5.0); BILIRUBIN,TOTAL 0.6 mg/dL (0.1-1.0)
[2022-03-01 02:36] VITALS: BP 117/59
== END 2022-03-01 03:18 | disposition home or self-care (01) ==
LOC: EMS 00:52
DX: I20.8 Other forms of angina pectoris (principal); I12.0 Hypertensive chronic kidney disease with stage 5 chronic kidney disease or end stage renal disease; N18.6 End stage renal disease; I21.9 Acute myocardial infarction, unspecified; E11.9 Type 2 diabetes mellitus without complications; Z90.81 Acquired absence of spleen; Z98.890 Other specified postprocedural states
CPT/HCPCS: 71045; 80053; 84484; 85025; 93005; 99285; 36415-L1; 36415-TC

== ENCOUNTER 2022-03-09 20:53 | Inpatient (IN) | payer MEDICARE, OTHER ==
[~2022-03-09] VITALS: Ht 167.6 cm; Wt 73.2 kg
[2022-03-09] MEDS ORDERED: ASPIRIN 81 MG CHEWABLE TABLET PO ONE (21:45)
[2022-03-09 22:01] LABS: COVID AG,FIA SOURCE NASAL SWAB
[2022-03-09 22:09] LABS: CALCIUM, TOTAL 9.4 mg/dL (8.8-10.5); CREATININE 12.74 mg/dL (0.60-1.30); POTASSIUM 4.6 mmol/L (3.5-5.1)
[2022-03-09 22:13] LABS: BASOPHILS % (AUTO) 0.6 % (0.0-2.0); HEMATOCRIT 33.8 % (41-53); HEMOGLOBIN 10.8 g/dL (13.5-17.5); LYMPHOCYTES % (AUTO) 16.6 % (22.0-44.0); MEAN CORPUSCULAR HEMOGLOBIN 32.3 pg (26.0-34.0); MEAN CORPUSCULAR HGB CONC 31.9 G/dL (31.0-37.0); MEAN CORPUSCULAR VOLUME 101 fL (80-100); MONOCYTES # (AUTO) 0.5 K/uL (0.1-1.0); MONOCYTES % (AUTO) 8.2 % (2.0-9.0); NEUTROPHILS # (AUTO) 3.3 K/uL (1.8-7.7); PLATELET COUNT (AUTO) 169 K/uL (150-450); RED BLOOD CELL COUNT(AUTO) 3.35 MIL/uL (4.50-5.90)
[2022-03-09 22:14] LABS: EOSINOPHILS % (AUTO) 17.6 % (1.0-6.0)
[2022-03-09] MEDS ORDERED: ONDANSETRON HCL 4 MG/2 ML VIAL IVP ONE (22:15)
[2022-03-09] MEDS ORDERED: MORPHINE SULFATE 4 MG/ML SYRINGE IVP ONE (22:15)
[2022-03-09 22:20] LABS: PROTHROMBIN TIME 10.6 SEC (9.4-11.6)
[2022-03-09 22:29] LABS: ALBUMIN 3.7 g/dL (3.4-5.0); BILIRUBIN,TOTAL 0.3 mg/dL (0.1-1.0); TOTAL PROTEIN, SERUM 8.2 g/dL (6.4-8.2)
[2022-03-09] MEDS: HEPARIN SODIUM 25000 UNITS/D5W 250 ML IV PRN (23:00)
[2022-03-09] MEDS ORDERED: HEPARIN SODIUM,PORCINE 5,000 UNITS/ML VIAL IVP ONE (23:00)
[2022-03-09] MEDS ORDERED: HEPARIN SODIUM,PORCINE 5,000 UNITS/ML VIAL IVP PRN (23:00)
[2022-03-09] MEDS ORDERED: SIMETHICONE 80 MG CHEWABLE TABLET PO PRN (23:00)
[2022-03-10] VITALS (11 sets, daily range): BP systolic 81–133; BP diastolic 52–72
[2022-03-10] MEDS ORDERED: ONDANSETRON HCL 4 MG/2 ML VIAL IVP PRN ×2 (05:15→06:00)
[2022-03-10] MEDS ORDERED: ACETAMINOPHEN 325 MG TABLET PO PRN ×2 (05:15→06:00)
[2022-03-10] MEDS ORDERED: 0.9% SODIUM CHLORIDE 10 ML SYRINGE IVP PRN (05:15)
[2022-03-10 08:00] LABS: BASOPHILS % (AUTO) 0.4 % (0.0-2.0); EOSINOPHILS % (AUTO) 14.1 % (1.0-6.0); HEMATOCRIT 32.1 % (41-53); HEMOGLOBIN 10.3 g/dL (13.5-17.5); LYMPHOCYTES # (AUTO) 1.6 K/uL (1.0-4.8); LYMPHOCYTES % (AUTO) 20.7 % (22.0-44.0); MEAN CORPUSCULAR HEMOGLOBIN 32.4 pg (26.0-34.0); MEAN CORPUSCULAR HGB CONC 32.1 G/dL (31.0-37.0); MEAN CORPUSCULAR VOLUME 101 fL (80-100); MONOCYTES # (AUTO) 0.6 K/uL (0.1-1.0); MONOCYTES % (AUTO) 8.4 % (2.0-9.0); NEUTROPHILS # (AUTO) 4.2 K/uL (1.8-7.7); NEUTROPHILS % (AUTO) 56.4 % (40.0-70.0); PLATELET COUNT (AUTO) 169 K/uL (150-450); RED BLOOD CELL COUNT(AUTO) 3.18 MIL/uL (4.50-5.90); RED CELL DISTRIBUTION WIDTH 14.7 % (11.5-14.5)
[2022-03-10] MEDS ORDERED: [UNRECOGNIZED DRUG - OTHER] PO SCH (08:00)
[2022-03-10] MEDS ORDERED: SEVELAMER CARBONATE 800 MG TABLET PO SCH (08:00)
[2022-03-10 08:08] LABS: CALCIUM, TOTAL 9.6 mg/dL (8.8-10.5); CREATININE 13.63 mg/dL (0.60-1.30); POTASSIUM 4.9 mmol/L (3.5-5.1)
[2022-03-10] MEDS: NIFEdipine 30 MG ER TABLET PO SCH ×2 (08:25→21:42)
[2022-03-10] MEDS: SEVELAMER CARBONATE 800 MG TABLET PO SCH ×3 (08:26→17:14)
[2022-03-10] MEDS: FOLIC ACID/VIT B COMPLEX AND C TABLET PO SCH (08:26)
[2022-03-10] MEDS: ISOSORBIDE MONONITRATE 60 MG ER TABLET PO SCH (08:26)
[2022-03-10] MEDS: TICAGRELOR 90 MG TABLET PO SCH ×2 (08:27→21:42)
[2022-03-10] MEDS: ATORVASTATIN CALCIUM 40 MG TABLET PO SCH (08:27)
[2022-03-10] MEDS: CALCIUM ACETATE 667 MG CAPSULE PO SCH ×3 (08:27→17:14)
[2022-03-10] MEDS: ASPIRIN 81 MG CHEWABLE TABLET PO SCH (08:27)
[2022-03-10] MEDS: CARVEDILOL 6.25 MG TABLET PO SCH ×2 (08:27→21:00)
[2022-03-10] MEDS: PEG 400/HYPROMELLOSE/GLYCERIN 15 ML OPHTHALMIC SOLUTION OU SCH ×4 (08:28→21:43)
[2022-03-10] MEDS ORDERED: ALLOPURINOL 100 MG TABLET PO SCH ×2 (09:00)
[2022-03-10] MEDS ORDERED: FOLIC ACID/VIT B COMPLEX AND C TABLET PO SCH (09:00)
[2022-03-10] MEDS ORDERED: PANTOPRAZOLE SODIUM 40 MG DR TABLET PO SCH (09:00)
[2022-03-10] MEDS ORDERED: NIFEdipine 30 MG ER TABLET PO SCH (09:00)
[2022-03-10] MEDS ORDERED: [UNRECOGNIZED DRUG - OTHER] OU SCH (09:00)
[2022-03-10] MEDS ORDERED: ISOSORBIDE MONONITRATE 60 MG ER TABLET PO SCH (09:00)
[2022-03-10] MEDS: SIMETHICONE 80 MG CHEWABLE TABLET PO PRN (10:33)
[2022-03-10] MEDS ORDERED: DOCUSATE SODIUM 100 MG CAPSULE PO PRN (11:30)
[2022-03-10] MEDS ORDERED: SODIUM CHLORIDE 0.9% 2,000 ML ONE (12:00)
[2022-03-10] MEDS: POLYETHYLENE GLYCOL 3350 17 GM PACKET PO PRN (12:06)
[2022-03-10] MEDS: DOCUSATE SODIUM 100 MG CAPSULE PO SCH (21:42)
[2022-03-11 00:29] VITALS: BP 110/54
[2022-03-11] MEDS: HEPARIN SODIUM 25000 UNITS/D5W 250 ML IV PRN ×2 (03:32→07:48)
[2022-03-11 04:49] VITALS: BP 122/62
[2022-03-11] MEDS: PANTOPRAZOLE SODIUM 40 MG DR TABLET PO SCH (06:14)
[2022-03-11 06:59] LABS: CALCIUM, TOTAL 9.3 mg/dL (8.8-10.5); CREATININE 9.14 mg/dL (0.60-1.30); POTASSIUM 4.9 mmol/L (3.5-5.1)
[2022-03-11 07:03] LABS: BASOPHILS % (AUTO) 0.5 % (0.0-2.0); EOSINOPHILS % (AUTO) 14.9 % (1.0-6.0); HEMATOCRIT 30.4 % (41-53); HEMOGLOBIN 10.1 g/dL (13.5-17.5); LYMPHOCYTES # (AUTO) 1.1 K/uL (1.0-4.8); LYMPHOCYTES % (AUTO) 18.9 % (22.0-44.0); MEAN CORPUSCULAR HEMOGLOBIN 33.1 pg (26.0-34.0); MEAN CORPUSCULAR HGB CONC 33.1 G/dL (31.0-37.0); MEAN CORPUSCULAR VOLUME 100 fL (80-100); MONOCYTES # (AUTO) 0.4 K/uL (0.1-1.0); NEUTROPHILS # (AUTO) 3.2 K/uL (1.8-7.7); NEUTROPHILS % (AUTO) 57.7 % (40.0-70.0); PLATELET COUNT (AUTO) 161 K/uL (150-450); RED BLOOD CELL COUNT(AUTO) 3.04 MIL/uL (4.50-5.90); RED CELL DISTRIBUTION WIDTH 14.8 % (11.5-14.5)
[2022-03-11 07:18] VITALS: BP 111/61
[2022-03-11] MEDS: HEPARIN SODIUM,PORCINE 5,000 UNITS/ML VIAL IVP PRN (07:45)
[2022-03-11] MEDS: NIFEdipine 30 MG ER TABLET PO SCH ×2 (08:24→20:43)
[2022-03-11] MEDS: CARVEDILOL 6.25 MG TABLET PO SCH ×2 (08:24→20:43)
[2022-03-11] MEDS: ISOSORBIDE MONONITRATE 60 MG ER TABLET PO SCH (08:25)
[2022-03-11] MEDS: ASPIRIN 81 MG CHEWABLE TABLET PO SCH (08:26)
[2022-03-11] MEDS: FOLIC ACID/VIT B COMPLEX AND C TABLET PO SCH (08:26)
[2022-03-11] MEDS: SEVELAMER CARBONATE 800 MG TABLET PO SCH ×3 (08:26→17:43)
[2022-03-11] MEDS: DOCUSATE SODIUM 100 MG CAPSULE PO SCH ×2 (08:26→20:43)
[2022-03-11] MEDS: ATORVASTATIN CALCIUM 40 MG TABLET PO SCH (08:27)
[2022-03-11] MEDS: TICAGRELOR 90 MG TABLET PO SCH ×2 (08:27→20:43)
[2022-03-11] MEDS: CALCIUM ACETATE 667 MG CAPSULE PO SCH ×3 (08:27→17:42)
[2022-03-11] MEDS: PEG 400/HYPROMELLOSE/GLYCERIN 15 ML OPHTHALMIC SOLUTION OU SCH ×4 (08:28→20:43)
[2022-03-11 10:52] VITALS: BP 120/68
[2022-03-11 15:11] VITALS: BP 108/55
[2022-03-11] MEDS: SIMETHICONE 80 MG CHEWABLE TABLET PO PRN (17:42)
[2022-03-11 20:36] VITALS: BP 129/70
[2022-03-12] VITALS (12 sets, daily range): BP systolic 109–148; BP diastolic 60–79
[2022-03-12] MEDS: HEPARIN SODIUM,PORCINE 5,000 UNITS/ML VIAL IVP PRN (00:44)
[2022-03-12 06:25] LABS: CALCIUM, TOTAL 9.4 mg/dL (8.8-10.5); CREATININE 11.51 mg/dL (0.60-1.30); PHOSPHORUS 4.1 mg/dL (2.5-4.9); POTASSIUM 5.4 mmol/L (3.5-5.1)
[2022-03-12] MEDS: PANTOPRAZOLE SODIUM 40 MG DR TABLET PO SCH (06:33)
[2022-03-12] MEDS: SIMETHICONE 80 MG CHEWABLE TABLET CHEW PRN ×2 (06:45→08:56)
[2022-03-12] MEDS: CALCIUM ACETATE 667 MG CAPSULE PO SCH ×3 (08:54→17:43)
[2022-03-12] MEDS: SEVELAMER CARBONATE 800 MG TABLET PO SCH ×3 (08:54→17:43)
[2022-03-12] MEDS: ATORVASTATIN CALCIUM 40 MG TABLET PO SCH (08:54)
[2022-03-12] MEDS: TICAGRELOR 90 MG TABLET PO SCH ×2 (08:55→20:31)
[2022-03-12] MEDS: NIFEdipine 30 MG ER TABLET PO SCH ×2 (08:55→20:31)
[2022-03-12] MEDS: ASPIRIN 81 MG CHEWABLE TABLET PO SCH (08:55)
[2022-03-12] MEDS: FOLIC ACID/VIT B COMPLEX AND C TABLET PO SCH (08:56)
[2022-03-12] MEDS: CARVEDILOL 6.25 MG TABLET PO SCH ×2 (08:56→20:25)
[2022-03-12] MEDS: POLYETHYLENE GLYCOL 3350 17 GM PACKET PO PRN (08:58)
[2022-03-12] MEDS: ISOSORBIDE MONONITRATE 60 MG ER TABLET PO SCH (08:58)
[2022-03-12] MEDS: DOCUSATE SODIUM 100 MG CAPSULE PO SCH ×2 (08:59→20:25)
[2022-03-12] MEDS: PEG 400/HYPROMELLOSE/GLYCERIN 15 ML OPHTHALMIC SOLUTION OU SCH ×4 (09:00→20:31)
[2022-03-12] MEDS ORDERED: PredniSONE 20 MG TABLET PO STA (20:02)
[2022-03-12] MEDS ORDERED: SODIUM ZIRCONIUM CYCLOSILICATE 5 GM POWDER PACKET PO ONE (20:15)
[2022-03-12] MEDS ORDERED: SODIUM CHLORIDE 0.9% 1,000 ML ONE (21:16)
[2022-03-13] VITALS (15 sets, daily range): BP systolic 113–201; BP diastolic 60–84
[2022-03-13] MEDS: MORPHINE SULFATE 2 MG/ML SYRINGE IVP PRN ×2 (00:38→18:01)
[2022-03-13 05:56] LABS: BASOPHILS % (AUTO) 0.2 % (0.0-2.0); EOSINOPHILS % (AUTO) 0.3 % (1.0-6.0); HEMATOCRIT 32.2 % (41-53); HEMOGLOBIN 10.6 g/dL (13.5-17.5); LYMPHOCYTES # (AUTO) 0.4 K/uL (1.0-4.8); LYMPHOCYTES % (AUTO) 8.4 % (22.0-44.0); MEAN CORPUSCULAR HGB CONC 32.9 G/dL (31.0-37.0); MEAN CORPUSCULAR VOLUME 100 fL (80-100); MONOCYTES # (AUTO) 0.1 K/uL (0.1-1.0); MONOCYTES % (AUTO) 1.4 % (2.0-9.0); NEUTROPHILS # (AUTO) 4.3 K/uL (1.8-7.7); PLATELET COUNT (AUTO) 174 K/uL (150-450); RED BLOOD CELL COUNT(AUTO) 3.22 MIL/uL (4.50-5.90); RED CELL DISTRIBUTION WIDTH 14.9 % (11.5-14.5)
[2022-03-13 06:03] LABS: CALCIUM, TOTAL 9.5 mg/dL (8.8-10.5); CREATININE 8.54 mg/dL (0.60-1.30); MAGNESIUM 1.8 mg/dL (1.80-2.40); PHOSPHORUS 3.5 mg/dL (2.5-4.9); POTASSIUM 5.6 mmol/L (3.5-5.1)
[2022-03-13] MEDS: PANTOPRAZOLE SODIUM 40 MG DR TABLET PO SCH (06:27)
[2022-03-13 06:46] LABS: NEUTROPHILS % (AUTO) 89.7 % (40.0-70.0)
[2022-03-13] MEDS ORDERED: PredniSONE 20 MG TABLET PO STA (08:31)
[2022-03-13] MEDS ORDERED: CETIRIZINE HCL 10 MG TABLET PO ONE (08:45)
[2022-03-13] MEDS: DOCUSATE SODIUM 100 MG CAPSULE PO SCH (08:49)
[2022-03-13] MEDS: SEVELAMER CARBONATE 800 MG TABLET PO SCH ×3 (08:50→18:00)
[2022-03-13] MEDS: CARVEDILOL 6.25 MG TABLET PO SCH (08:51)
[2022-03-13] MEDS: CALCIUM ACETATE 667 MG CAPSULE PO SCH ×3 (08:52→18:00)
[2022-03-13] MEDS: ATORVASTATIN CALCIUM 40 MG TABLET PO SCH (08:53)
[2022-03-13] MEDS: NIFEdipine 30 MG ER TABLET PO SCH (08:54)
[2022-03-13] MEDS: ISOSORBIDE MONONITRATE 60 MG ER TABLET PO SCH (08:55)
[2022-03-13] MEDS: TICAGRELOR 90 MG TABLET PO SCH (08:55)
[2022-03-13] MEDS: FOLIC ACID/VIT B COMPLEX AND C TABLET PO SCH (08:56)
[2022-03-13] MEDS: ASPIRIN 81 MG CHEWABLE TABLET PO SCH (08:58)
[2022-03-13] MEDS: PEG 400/HYPROMELLOSE/GLYCERIN 15 ML OPHTHALMIC SOLUTION OU SCH ×3 (08:59→16:00)
[2022-03-13] MEDS ORDERED: SODIUM BICARBONATE 50 MEQ/50 ML VIAL ONE (17:23)
[2022-03-13] MEDS ORDERED: LIDOCAINE/PF 1% 30 ML VIAL ONE (17:23)
[2022-03-13] MEDS ORDERED: HEPARIN SODIUM 1000 UNITS/NS 1,000 ML ONE (17:24)
[2022-03-13] MEDS ORDERED: IOHEXOL 350 MG/ML 100 ML VIAL ONE (17:24)
[2022-03-13] MEDS ORDERED: MORPHINE SULFATE 2 MG/ML SYRINGE ONE (17:53)
[2022-03-13] MEDS ORDERED: MethylPREDNISolone SOD SUCC 125 MG/2 ML VIAL ONE (18:05)
[2022-03-13] MEDS ORDERED: VERAPAMIL HCL 2.5 MG/ML 2 ML VIAL ONE (18:14)
[2022-03-13] MEDS ORDERED: NITROGLYCERIN 50 MG/D5% WATER 250 ML ONE (18:14)
[2022-03-13] MEDS ORDERED: HEPARIN SODIUM,PORCINE 1,000 UNITS/ML 10 ML VIAL IARTER ONE (18:15)
[2022-03-13] MEDS ORDERED: HEPARIN SODIUM 1000 UNITS/NS 1,000 ML IARTER ONE (18:15)
[2022-03-13] MEDS ORDERED: VERAPAMIL HCL 2.5 MG/ML 2 ML VIAL IARTER ONE (18:15)
[2022-03-13] MEDS ORDERED: NITROGLYCERIN/D5W 50 MG/250 ML IV BOTTLE IARTER ONE (18:15)
[2022-03-13] MEDS ORDERED: LIDOCAINE 1% 30 ML/SOD BICARB 8.4% 4 ML SQ ONE (18:15)
[2022-03-13] MEDS ORDERED: IOHEXOL 300 MG/ML 100 ML VIAL IARTER ONE (18:15)
[2022-03-13] MEDS ORDERED: MIDAZOLAM HCL 2 MG/2 ML VIAL ONE (18:20)
[2022-03-13] MEDS ORDERED: FentaNYL CITRATE PF 100 MCG/2 ML VIAL ONE (18:20)
[2022-03-13] MEDS ORDERED: MIDAZOLAM HCL 2 MG/2 ML VIAL IVP ONE (18:30)
[2022-03-13] MEDS ORDERED: FentaNYL CITRATE PF 100 MCG/2 ML VIAL IVP ONE ×2 (18:30→18:45)
[2022-03-13] MEDS ORDERED: MethylPREDNISolone SOD SUCC 125 MG/2 ML VIAL IVP ONE (18:30)
[2022-03-13] MEDS ORDERED: HEPARIN SODIUM,PORCINE 1,000 UNITS/ML 10 ML VIAL IVP ONE (18:45)
[2022-03-13] MEDS ORDERED: NITROGLYCERIN 400 MCG/SUBLINGUAL SPRAY 4.9 GM BOTTLE SL ONE ×2 (19:31→19:45)
[2022-03-13] MEDS ORDERED: IOHEXOL 300 MG/ML 100 ML VIAL ONE (19:41)
[2022-03-13] MEDS ORDERED: MORPHINE SULFATE 2 MG/ML SYRINGE IVP PRN (20:15)
[2022-03-14] VITALS (12 sets, daily range): BP systolic 92–161; BP diastolic 51–78
[2022-03-14] MEDS: RANOLAZINE 500 MG ER TABLET PO SCH ×2 (00:26→08:35)
[2022-03-14] MEDS: NIFEdipine 30 MG ER TABLET PO SCH ×2 (00:26→08:36)
[2022-03-14] MEDS: DOCUSATE SODIUM 100 MG CAPSULE PO SCH ×2 (00:26→08:36)
[2022-03-14] MEDS: CARVEDILOL 6.25 MG TABLET PO SCH ×2 (00:27→08:35)
[2022-03-14] MEDS: TICAGRELOR 90 MG TABLET PO SCH ×2 (00:27→08:35)
[2022-03-14] MEDS: PEG 400/HYPROMELLOSE/GLYCERIN 15 ML OPHTHALMIC SOLUTION OU SCH ×4 (00:28→16:27)
[2022-03-14 06:04] LABS: BASOPHILS % (AUTO) 0.2 % (0.0-2.0); CALCIUM, TOTAL 9.4 mg/dL (8.8-10.5); CREATININE 6.35 mg/dL (0.60-1.30); EOSINOPHILS % (AUTO) 0 % (1.0-6.0); HEMATOCRIT 30.2 % (41-53); LYMPHOCYTES # (AUTO) 0.4 K/uL (1.0-4.8); LYMPHOCYTES % (AUTO) 4.5 % (22.0-44.0); MEAN CORPUSCULAR HGB CONC 32.9 G/dL (31.0-37.0); MEAN CORPUSCULAR VOLUME 100 fL (80-100); MONOCYTES # (AUTO) 0.4 K/uL (0.1-1.0); MONOCYTES % (AUTO) 4.5 % (2.0-9.0); NEUTROPHILS # (AUTO) 8.3 K/uL (1.8-7.7); PLATELET COUNT (AUTO) 174 K/uL (150-450); POTASSIUM 4.6 mmol/L (3.5-5.1); RED BLOOD CELL COUNT(AUTO) 3.01 MIL/uL (4.50-5.90); RED CELL DISTRIBUTION WIDTH 14.7 % (11.5-14.5)
[2022-03-14 06:05] LABS: NEUTROPHILS % (AUTO) 90.8 % (40.0-70.0)
[2022-03-14] MEDS: PANTOPRAZOLE SODIUM 40 MG DR TABLET PO SCH ×2 (06:29→08:36)
[2022-03-14] MEDS: FOLIC ACID/VIT B COMPLEX AND C TABLET PO SCH (08:35)
[2022-03-14] MEDS: CALCIUM ACETATE 667 MG CAPSULE PO SCH ×2 (08:35→13:22)
[2022-03-14] MEDS: ASPIRIN 81 MG CHEWABLE TABLET PO SCH (08:36)
[2022-03-14] MEDS: SEVELAMER CARBONATE 800 MG TABLET PO SCH ×2 (08:36→13:22)
[2022-03-14] MEDS: ATORVASTATIN CALCIUM 40 MG TABLET PO SCH (08:37)
[2022-03-14] MEDS ORDERED: ISOSORBIDE MONONITRATE 30 MG ER TABLET PO SCH (09:00)
[2022-03-14] MEDS ORDERED: PANT-31 PO (13:02)
[2022-03-14] MEDS ORDERED: FOLI0.8T2 PO (13:02)
[2022-03-14] MEDS ORDERED: NIFE-40 PO (13:02)
[2022-03-14] MEDS ORDERED: RANO500T3 PO (13:02)
[2022-03-14] MEDS ORDERED: ATOR40TA71 PO (13:02)
[2022-03-14] MEDS ORDERED: PHOSLOC PO (13:02)
[2022-03-14] MEDS ORDERED: CARV6 PO (13:02)
[2022-03-14] MEDS ORDERED: ASPI81 PO (13:02)
[2022-03-14] MEDS ORDERED: ISOS30TA92 PO (13:02)
[2022-03-14] MEDS ORDERED: TICA90TA PO (13:02)
== END 2022-03-14 18:00 | disposition home or self-care (01) | DRG 250 ==
LOC: EMS 20:53 → 5S 03-10 05:17 → 5N 03-13 10:49
PROVIDERS: ADMIT Internal Medicine; ATTEND Internal Medicine
PROC: 5A1D70Z Performance of Urinary Filtration, Intermittent, Less than 6 Hours Per Day (ICD-10-PCS; 2022-03-12)
PROC: 02713ZZ Dilation of Coronary Artery, Two Arteries, Percutaneous Approach (ICD-10-PCS; principal; 2022-03-13)
PROC: 4A023N7 Measurement of Cardiac Sampling and Pressure, Left Heart, Percutaneous Approach (ICD-10-PCS; 2022-03-13)
PROC: B2121ZZ Fluoroscopy of Single Coronary Artery Bypass Graft using Low Osmolar Contrast (ICD-10-PCS; 2022-03-13)
PROC: 5A1D70Z Performance of Urinary Filtration, Intermittent, Less than 6 Hours Per Day (ICD-10-PCS; 2022-03-13)
PROC: B2111ZZ Fluoroscopy of Multiple Coronary Arteries using Low Osmolar Contrast (ICD-10-PCS; 2022-03-13)
PROC: 5A1D70Z Performance of Urinary Filtration, Intermittent, Less than 6 Hours Per Day (ICD-10-PCS; 2022-03-14)
PROC: 5A1D70Z Performance of Urinary Filtration, Intermittent, Less than 6 Hours Per Day (ICD-10-PCS; 2022-03-14)
DX: I21.4 Non-ST elevation (NSTEMI) myocardial infarction (principal); N18.6 End stage renal disease; I12.0 Hypertensive chronic kidney disease with stage 5 chronic kidney disease or end stage renal disease; E11.22 Type 2 diabetes mellitus with diabetic chronic kidney disease; Z99.2 Dependence on renal dialysis; Z95.1 Presence of aortocoronary bypass graft; E87.5 Hyperkalemia; E78.5 Hyperlipidemia, unspecified; E11.65 Type 2 diabetes mellitus with hyperglycemia; D63.1 Anemia in chronic kidney disease; I25.119 Atherosclerotic heart disease of native coronary artery with unspecified angina pectoris; I44.0 Atrioventricular block, first degree; K21.9 Gastro-esophageal reflux disease without esophagitis; Z91.041 Radiographic dye allergy status; Z88.8 Allergy status to other drugs, medicaments and biological substances; Z79.82 Long term (current) use of aspirin; Z79.4 Long term (current) use of insulin; Z79.899 Other long term (current) drug therapy; Z85.528 Personal history of other malignant neoplasm of kidney; Z90.5 Acquired absence of kidney; Z79.02 Long term (current) use of antithrombotics/antiplatelets; Z90.81 Acquired absence of spleen; Z95.5 Presence of coronary angioplasty implant and graft
CPT/HCPCS: 71045; 80048; 80053; 82550; 83735; 83880; 84100; 84484; 85025; 85610; 85730; 87340; 90935; 92920; 93005; 93459; 99291; J1644; J2250; J2270; J2405; J2930; J3010; J3490; J7030; Q9967; 36415-L1; 36415-TC; Z7610

== ENCOUNTER → 2022-03-21 | Outpatient (CLI) | payer MEDICARE, OTHER ==
[~2022-03-21] VITALS: Ht 167.6 cm; Wt 74.0 kg
[~2022-03-21] MED LIST changes: -ASPI-1450 PO; +ASPI81 PO; -CALC500T37 PO; +FOLI0.8T2 PO; +ISOS30TA92 PO; +PHOSLOC PO; -PRED-549 PO; -PRED-554 PO; -PRED-729 PO; +RANO500T3 PO
[2022-03-21 15:19] VITALS: BP 139/65
== END | disposition home or self-care (01) ==
LOC: SRCNTR 14:45
PROVIDERS: ATTEND Internal Medicine
DX: I12.0 Hypertensive chronic kidney disease with stage 5 chronic kidney disease or end stage renal disease (principal); E11.22 Type 2 diabetes mellitus with diabetic chronic kidney disease; N18.6 End stage renal disease; Z09 Encounter for follow-up examination after completed treatment for conditions other than malignant neoplasm; I25.10 Atherosclerotic heart disease of native coronary artery without angina pectoris; Z91.041 Radiographic dye allergy status; Z99.2 Dependence on renal dialysis; Z95.1 Presence of aortocoronary bypass graft
CPT/HCPCS: G0463

== ENCOUNTER 2022-04-30 15:35 | Inpatient (IN) | payer MEDICARE, OTHER ==
[~2022-04-30] VITALS: Ht 175.3 cm; Wt 74.2 kg
[2022-04-30] MEDS ORDERED: CARV12.530 PO (15:45)
[2022-04-30] MEDS ORDERED: NITROGLYCERIN 0.4 MG SUBLINGUAL TABLET #25 SL ONE (16:00)
[2022-04-30 16:12] LABS: COVID AG,FIA SOURCE NASOPHARYNGEAL
[2022-04-30 16:14] LABS: BASOPHILS % (AUTO) 0.4 % (0.0-2.0); HEMOGLOBIN 9.8 g/dL (13.5-17.5); LYMPHOCYTES # (AUTO) 0.8 K/uL (1.0-4.8); LYMPHOCYTES % (AUTO) 12.7 % (22.0-44.0); MEAN CORPUSCULAR HEMOGLOBIN 33.5 pg (26.0-34.0); MEAN CORPUSCULAR HGB CONC 32.7 G/dL (31.0-37.0); MEAN CORPUSCULAR VOLUME 102 fL (80-100); MONOCYTES # (AUTO) 0.4 K/uL (0.1-1.0); MONOCYTES % (AUTO) 6.7 % (2.0-9.0); NEUTROPHILS # (AUTO) 4.2 K/uL (1.8-7.7); NEUTROPHILS % (AUTO) 64.5 % (40.0-70.0); PLATELET COUNT (AUTO) 210 K/uL (150-450); RED BLOOD CELL COUNT(AUTO) 2.94 MIL/uL (4.50-5.90); RED CELL DISTRIBUTION WIDTH 14.7 % (11.5-14.5)
[2022-04-30 16:16] LABS: EOSINOPHILS % (AUTO) 15.7 % (1.0-6.0)
[2022-04-30 16:21] LABS: CALCIUM, TOTAL 9.2 mg/dL (8.8-10.5); CREATININE 10.96 mg/dL (0.60-1.30)
[2022-04-30 16:25] LABS: PROTHROMBIN TIME 10.5 SEC (9.4-11.6)
[2022-04-30 16:27] LABS: ALBUMIN 3.8 g/dL (3.4-5.0); BILIRUBIN,TOTAL 0.5 mg/dL (0.1-1.0); MAGNESIUM 2.7 mg/dL (1.80-2.40); PHOSPHORUS 3.6 mg/dL (2.5-4.9); TOTAL PROTEIN, SERUM 8.7 g/dL (6.4-8.2)
[2022-04-30] MEDS ORDERED: MORPHINE SULFATE 2 MG/ML SYRINGE IVP ONE (16:30)
[2022-04-30] MEDS ORDERED: BISACODYL 10 MG RECTAL RECTAL SUPPOSITORY PR PRN (17:00)
[2022-04-30] MEDS ORDERED: INSULIN LISPRO 100 UNITS/ML SQ PRN (17:00)
[2022-04-30] MEDS ORDERED: DEXTROSE 50%-WATER 25 GM/50 ML SYRINGE IVP PRN (17:00)
[2022-04-30] MEDS ORDERED: ONDANSETRON HCL 4 MG/2 ML VIAL IVP PRN (17:00)
[2022-04-30 19:36] VITALS: BP 147/63
[2022-04-30] MEDS: TICAGRELOR 90 MG TABLET PO SCH (20:37)
[2022-04-30] MEDS: CARVEDILOL 6.25 MG TABLET PO SCH (20:37)
[2022-04-30] MEDS: DOCUSATE SODIUM 100 MG CAPSULE PO SCH (20:38)
[2022-04-30] MEDS: ACETAMINOPHEN 325 MG TABLET PO PRN (23:18)
[2022-04-30] MEDS: HEPARIN SODIUM,PORCINE 5,000 UNITS/ML VIAL SQ SCH (23:18)
[2022-04-30 23:56] LABS: GLUCOMETER DEV NAME(LOC) 5S.1B; GLUCOSE,POINT OF CARE 113 MG/DL (70-110)
[2022-05-01] VITALS (17 sets, daily range): BP systolic 143–196; BP diastolic 66–98
[2022-05-01] MEDS ORDERED: NITROGLYCERIN 0.4 MG SUBLINGUAL TABLET #25 SL ONE (00:15)
[2022-05-01] MEDS: NITROGLYCERIN 2% (1 GM=INCH) OINTMENT PACKET TP SCH ×3 (00:42→12:02)
[2022-05-01] MEDS: ACETAMINOPHEN 325 MG TABLET PO PRN ×2 (04:17→10:42)
[2022-05-01] MEDS: CARVEDILOL 6.25 MG TABLET PO SCH (08:30)
[2022-05-01] MEDS: FAMOTIDINE 20 MG TABLET PO SCH (08:30)
[2022-05-01] MEDS: ASPIRIN 81 MG CHEWABLE TABLET PO SCH (08:30)
[2022-05-01] MEDS: DOCUSATE SODIUM 100 MG CAPSULE PO SCH ×2 (08:31→20:17)
[2022-05-01] MEDS: HEPARIN SODIUM,PORCINE 5,000 UNITS/ML VIAL SQ SCH ×3 (08:31→23:49)
[2022-05-01] MEDS: TICAGRELOR 90 MG TABLET PO SCH ×2 (08:31→20:17)
[2022-05-01] MEDS: ATORVASTATIN CALCIUM 40 MG TABLET PO SCH (08:31)
[2022-05-01] MEDS ORDERED: MORPHINE SULFATE 2 MG/ML SYRINGE IVP PRN (09:15)
[2022-05-01] MEDS ORDERED: NIFEdipine 30 MG ER TABLET PO SCH (09:30)
[2022-05-01] MEDS ORDERED: LOSARTAN POTASSIUM 25 MG TABLET PO SCH (10:00)
[2022-05-01] MEDS: NIFEdipine 30 MG ER TABLET PO SCH ×2 (10:40→20:17)
[2022-05-01] MEDS ORDERED: ISOSORBIDE MONONITRATE 60 MG ER TABLET PO SCH (17:00)
[2022-05-01] MEDS: RANOLAZINE 500 MG ER TABLET PO SCH ×2 (17:17→20:16)
[2022-05-01] MEDS: SEVELAMER CARBONATE 800 MG TABLET PO SCH (17:17)
[2022-05-01] MEDS: EPOETIN ALFA 10,000 UNITS/ML 2 ML VIAL SQ SCH (17:17)
[2022-05-01] MEDS: HydrALAZINE HCL 20 MG/ML VIAL IVP PRN (17:58)
[2022-05-01] MEDS: CARVEDILOL 12.5 MG TABLET PO SCH (20:17)
[2022-05-01 22:41] LABS: GLUCOMETER DEV NAME(LOC) 5S.1B; GLUCOSE,POINT OF CARE 102 MG/DL (70-110)
[2022-05-01 22:41] LABS: GLUCOMETER DEV NAME(LOC) 5S.2B; GLUCOSE,POINT OF CARE 144 MG/DL (70-110)
[2022-05-01 22:41] LABS: GLUCOMETER DEV NAME(LOC) 5S.2B; GLUCOSE,POINT OF CARE 110 MG/DL (70-110)
[2022-05-02] VITALS (13 sets, daily range): BP systolic 115–169; BP diastolic 66–80
[2022-05-02] MEDS: ACETAMINOPHEN 325 MG TABLET PO PRN (02:34)
[2022-05-02 06:26] LABS: GLUCOMETER DEV NAME(LOC) 5S.2B; GLUCOSE,POINT OF CARE 132 MG/DL (70-110)
[2022-05-02] MEDS: HEPARIN SODIUM,PORCINE 5,000 UNITS/ML VIAL SQ SCH ×3 (08:22→23:36)
[2022-05-02] MEDS: DOCUSATE SODIUM 100 MG CAPSULE PO SCH ×2 (08:23→20:42)
[2022-05-02] MEDS: LOSARTAN POTASSIUM 50 MG TABLET PO SCH (08:23)
[2022-05-02] MEDS: CARVEDILOL 12.5 MG TABLET PO SCH ×2 (08:23→20:42)
[2022-05-02] MEDS: FAMOTIDINE 20 MG TABLET PO SCH (08:23)
[2022-05-02] MEDS: ISOSORBIDE MONONITRATE 30 MG ER TABLET PO SCH (08:23)
[2022-05-02] MEDS: ATORVASTATIN CALCIUM 40 MG TABLET PO SCH (08:23)
[2022-05-02] MEDS: ASPIRIN 81 MG CHEWABLE TABLET PO SCH (08:23)
[2022-05-02] MEDS: SEVELAMER CARBONATE 800 MG TABLET PO SCH ×3 (08:24→17:12)
[2022-05-02] MEDS: RANOLAZINE 500 MG ER TABLET PO SCH ×2 (08:24→20:42)
[2022-05-02] MEDS: TICAGRELOR 90 MG TABLET PO SCH ×2 (08:24→20:42)
[2022-05-02] MEDS: FOLIC ACID/VIT B COMPLEX AND C TABLET PO SCH (13:22)
[2022-05-02] MEDS: NIFEdipine 30 MG ER TABLET PO SCH ×2 (13:23→20:42)
[2022-05-02] MEDS: PANTOPRAZOLE SODIUM 40 MG DR TABLET PO SCH (13:23)
[2022-05-02] MEDS: HydrALAZINE HCL 20 MG/ML VIAL IVP PRN (17:12)
[2022-05-03] VITALS (11 sets, daily range): BP systolic 121–160; BP diastolic 63–79
[2022-05-03 03:26] LABS: GLUCOMETER DEV NAME(LOC) 5S.2B; GLUCOSE,POINT OF CARE 142 MG/DL (70-110)
[2022-05-03 07:01] LABS: GLUCOMETER DEV NAME(LOC) 5S.1B; GLUCOSE,POINT OF CARE 86 MG/DL (70-110)
[2022-05-03] MEDS: SEVELAMER CARBONATE 800 MG TABLET PO SCH ×2 (10:52→13:55)
[2022-05-03] MEDS: HEPARIN SODIUM,PORCINE 5,000 UNITS/ML VIAL SQ SCH ×2 (10:53→16:00)
[2022-05-03] MEDS: ASPIRIN 81 MG CHEWABLE TABLET PO SCH (10:54)
[2022-05-03] MEDS: DOCUSATE SODIUM 100 MG CAPSULE PO SCH (10:54)
[2022-05-03] MEDS: CARVEDILOL 12.5 MG TABLET PO SCH (10:55)
[2022-05-03] MEDS: ISOSORBIDE MONONITRATE 30 MG ER TABLET PO SCH (10:56)
[2022-05-03] MEDS: ATORVASTATIN CALCIUM 40 MG TABLET PO SCH (10:56)
[2022-05-03] MEDS: PANTOPRAZOLE SODIUM 40 MG DR TABLET PO SCH (10:57)
[2022-05-03] MEDS: RANOLAZINE 500 MG ER TABLET PO SCH (10:58)
[2022-05-03] MEDS: TICAGRELOR 90 MG TABLET PO SCH (10:58)
[2022-05-03] MEDS ORDERED: TICA90TA PO (11:28)
[2022-05-03] MEDS ORDERED: FOLI0.8T2 PO (11:28)
[2022-05-03] MEDS ORDERED: ASPI81 PO (11:28)
[2022-05-03] MEDS ORDERED: NIFE-40 PO (11:28)
[2022-05-03] MEDS ORDERED: RANO500T3 PO (11:28)
[2022-05-03] MEDS ORDERED: ISOS30TA92 PO (11:28)
[2022-05-03] MEDS ORDERED: CARV12 PO (11:28)
[2022-05-03] MEDS ORDERED: ATOR40TA71 PO (11:28)
[2022-05-03] MEDS ORDERED: LOSA-382 PO (11:28)
[2022-05-03] MEDS ORDERED: SEVE800T17 PO (11:28)
[2022-05-03] MEDS: EPOETIN ALFA 10,000 UNITS/ML 2 ML VIAL SQ SCH (12:19)
[2022-05-03] MEDS: LOSARTAN POTASSIUM 50 MG TABLET PO SCH (13:55)
[2022-05-03] MEDS: NIFEdipine 30 MG ER TABLET PO SCH (13:55)
[2022-05-03] MEDS: FOLIC ACID/VIT B COMPLEX AND C TABLET PO SCH (13:55)
[2022-05-03 19:35] LABS: GLUCOMETER DEV NAME(LOC) 5S.1B; GLUCOSE,POINT OF CARE 143 MG/DL (70-110)
== END 2022-05-03 17:05 | disposition home or self-care (01) | DRG 302 ==
LOC: EMS 15:43 → 5N 19:27
PROVIDERS: ADMIT Internal Medicine; ATTEND Internal Medicine
PROC: 5A1D70Z Performance of Urinary Filtration, Intermittent, Less than 6 Hours Per Day (ICD-10-PCS; principal; 2022-05-01)
PROC: 5A1D70Z Performance of Urinary Filtration, Intermittent, Less than 6 Hours Per Day (ICD-10-PCS; 2022-05-02)
PROC: 5A1D70Z Performance of Urinary Filtration, Intermittent, Less than 6 Hours Per Day (ICD-10-PCS; 2022-05-03)
DX: I25.110 Atherosclerotic heart disease of native coronary artery with unstable angina pectoris (principal); N18.6 End stage renal disease; E87.1 Hypo-osmolality and hyponatremia; N25.81 Secondary hyperparathyroidism of renal origin; I13.2 Hypertensive heart and chronic kidney disease with heart failure and with stage 5 chronic kidney disease, or end stage renal disease; I50.30 Unspecified diastolic (congestive) heart failure; E11.22 Type 2 diabetes mellitus with diabetic chronic kidney disease; D63.1 Anemia in chronic kidney disease; E11.319 Type 2 diabetes mellitus with unspecified diabetic retinopathy without macular edema; E78.5 Hyperlipidemia, unspecified; E83.39 Other disorders of phosphorus metabolism; E11.65 Type 2 diabetes mellitus with hyperglycemia; Z20.822 Contact with and (suspected) exposure to COVID-19; E11.51 Type 2 diabetes mellitus with diabetic peripheral angiopathy without gangrene; Z88.8 Allergy status to other drugs, medicaments and biological substances; Z91.041 Radiographic dye allergy status; Z95.1 Presence of aortocoronary bypass graft; Z95.5 Presence of coronary angioplasty implant and graft; Z99.2 Dependence on renal dialysis; Z79.899 Other long term (current) drug therapy; Z79.82 Long term (current) use of aspirin; Z79.4 Long term (current) use of insulin; Z90.5 Acquired absence of kidney; Z85.528 Personal history of other malignant neoplasm of kidney; I25.2 Old myocardial infarction; Z79.02 Long term (current) use of antithrombotics/antiplatelets; Z87.891 Personal history of nicotine dependence
CPT/HCPCS: 71045; 80053; 82550; 82962; 83735; 83880; 84100; 84484; 85025; 85610; 85730; 87340; 90935; 93005; 99291; J0360; J0885; J1644; J2270; 36415-L1; 36415-TC

== ENCOUNTER → 2022-05-23 | Outpatient (CLI) | payer MEDICARE, OTHER ==
[~2022-05-23] VITALS: Ht 167.6 cm; Wt 72.5 kg
[~2022-05-23] MED LIST changes: +CARV12 PO; -CARV6 PO; -FOLI0.8T7 PO; -ISOS60TA77 PO; +LOSA-382 PO; -PHOSLOC PO; -RANO500T3 PO; +[UNRECOGNIZED DRUG - CODE] PO
[2022-05-23 14:02] VITALS: BP 117/62
== END | disposition home or self-care (01) ==
LOC: SRCNTR 13:49
PROVIDERS: ATTEND Internal Medicine
DX: I12.0 Hypertensive chronic kidney disease with stage 5 chronic kidney disease or end stage renal disease (principal); E11.22 Type 2 diabetes mellitus with diabetic chronic kidney disease; N18.6 End stage renal disease; I25.10 Atherosclerotic heart disease of native coronary artery without angina pectoris; Z99.2 Dependence on renal dialysis; I25.2 Old myocardial infarction; Z95.1 Presence of aortocoronary bypass graft; Z91.041 Radiographic dye allergy status
CPT/HCPCS: G0463; Z7500

== ENCOUNTER 2022-05-25 01:59 | Inpatient (IN) | payer MEDICARE, OTHER ==
[~2022-05-25] VITALS: Ht 172.7 cm; Wt 72.0 kg
[2022-05-25 03:35] LABS: CALCIUM, TOTAL 8.8 mg/dL (8.8-10.5); CREATININE 8.03 mg/dL (0.60-1.30)
[2022-05-25 03:41] LABS: ALBUMIN 2.8 g/dL (3.4-5.0); BASOPHILS % (AUTO) 0.5 % (0.0-2.0); BILIRUBIN,TOTAL 0.8 mg/dL (0.1-1.0); EOSINOPHILS % (AUTO) 8.4 % (1.0-6.0); HEMATOCRIT 28.5 % (41-53); HEMOGLOBIN 9.3 g/dL (13.5-17.5); LYMPHOCYTES # (AUTO) 0.7 K/uL (1.0-4.8); LYMPHOCYTES % (AUTO) 8.6 % (22.0-44.0); MEAN CORPUSCULAR HEMOGLOBIN 32.6 pg (26.0-34.0); MEAN CORPUSCULAR HGB CONC 32.5 G/dL (31.0-37.0); MEAN CORPUSCULAR VOLUME 100 fL (80-100); MONOCYTES # (AUTO) 0.7 K/uL (0.1-1.0); MONOCYTES % (AUTO) 8.9 % (2.0-9.0); NEUTROPHILS # (AUTO) 6.1 K/uL (1.8-7.7); NEUTROPHILS % (AUTO) 73.6 % (40.0-70.0); PLATELET COUNT (AUTO) 296 K/uL (150-450); RED BLOOD CELL COUNT(AUTO) 2.84 MIL/uL (4.50-5.90); RED CELL DISTRIBUTION WIDTH 14.3 % (11.5-14.5); TOTAL PROTEIN, SERUM 8.8 g/dL (6.4-8.2)
[2022-05-25] MEDS ORDERED: NITROGLYCERIN 2% (1 GM=INCH) OINTMENT PACKET TP ONE (04:00)
[2022-05-25] MEDS ORDERED: ONDANSETRON HCL 4 MG/2 ML VIAL IVP ONE (04:00)
[2022-05-25] MEDS ORDERED: MORPHINE SULFATE 4 MG/ML SYRINGE IVP ONE (04:00)
[2022-05-25] MEDS ORDERED: ASPIRIN 81 MG CHEWABLE TABLET PO ONE (04:15)
[2022-05-25] MEDS ORDERED: HYDROmorphone HCL 2 MG/ML SYRINGE IVP ONE (04:45)
[2022-05-25] MEDS ORDERED: METOPROLOL TARTRATE 5 MG/5 ML VIAL IVP ONE (04:45)
[2022-05-25] MEDS ORDERED: PB/HYOSCY/ATR/SCOP/LIDO/MAALOX 55 ML BOTTLE PO ONE (06:15)
[2022-05-25] MEDS ORDERED: ONDANSETRON HCL 4 MG/2 ML VIAL IVP PRN (06:30)
[2022-05-25] MEDS ORDERED: ACETAMINOPHEN 325 MG TABLET PO PRN (06:30)
[2022-05-25] MEDS ORDERED: POLYETHYLENE GLYCOL 3350 17 GM PACKET PO PRN (07:45)
[2022-05-25] MEDS ORDERED: SIMETHICONE 80 MG CHEWABLE TABLET PO PRN (07:45)
[2022-05-25] MEDS ORDERED: CALCIUM ACETATE 667 MG CAPSULE PO SCH ×2 (08:00→08:20)
[2022-05-25] MEDS ORDERED: HEPARIN SODIUM,PORCINE 5,000 UNITS/ML VIAL SQ SCH (08:00)
[2022-05-25] MEDS: PANTOPRAZOLE SODIUM 40 MG DR TABLET PO SCH (08:59)
[2022-05-25] MEDS: LOSARTAN POTASSIUM 50 MG TABLET PO SCH (08:59)
[2022-05-25] MEDS: ATORVASTATIN CALCIUM 40 MG TABLET PO SCH (08:59)
[2022-05-25] MEDS ORDERED: TICAGRELOR 90 MG TABLET PO SCH (09:00)
[2022-05-25] MEDS: TICAGRELOR 90 MG TABLET PO SCH ×2 (09:01→20:22)
[2022-05-25] MEDS: SEVELAMER CARBONATE 800 MG TABLET PO SCH ×3 (09:25→18:05)
[2022-05-25] MEDS: FOLIC ACID/VIT B COMPLEX AND C TABLET PO SCH (09:25)
[2022-05-25] MEDS: CARVEDILOL 12.5 MG TABLET PO SCH ×2 (09:25→20:21)
[2022-05-25] MEDS: CALCIUM ACETATE 667 MG CAPSULE PO SCH ×3 (09:26→18:05)
[2022-05-25] MEDS: ISOSORBIDE MONONITRATE 30 MG ER TABLET PO SCH (09:26)
[2022-05-25] MEDS: ALLOPURINOL 100 MG TABLET PO SCH (09:26)
[2022-05-25] MEDS: RANOLAZINE 500 MG ER TABLET PO SCH ×2 (09:26→20:21)
[2022-05-25] MEDS: NIFEdipine 30 MG ER TABLET PO SCH ×2 (09:26→20:22)
[2022-05-25] MEDS ORDERED: PENTETATE DTPA TC99M/MCL ISOTOPE 1 EA INJ INJ ONE (10:10)
[2022-05-25] MEDS ORDERED: MAA ALBUMIN AGGREGATED TC99M/UD<10MCL ISOTOPE 1 EA INJ INJ ONE (10:30)
[2022-05-25] MEDS ORDERED: HEPARIN SODIUM,PORCINE 5,000 UNITS/ML VIAL IVP ONE (15:00)
[2022-05-25] MEDS ORDERED: HEPARIN SODIUM,PORCINE 5,000 UNITS/ML VIAL IVP PRN ×2 (15:00)
[2022-05-25 15:38] LABS: PROTHROMBIN TIME 10.9 SEC (9.4-11.6)
[2022-05-25 16:05] VITALS: BP 113/61
[2022-05-25] MEDS: HEPARIN SODIUM 25000 UNITS/D5W 250 ML IV PRN (16:12)
[2022-05-25 20:15] VITALS: BP 129/74
[2022-05-25 22:22] LABS: BASOPHILS % (AUTO) 0.4 % (0.0-2.0); EOSINOPHILS % (AUTO) 9.3 % (1.0-6.0); HEMATOCRIT 27.1 % (41-53); HEMOGLOBIN 8.8 g/dL (13.5-17.5); LYMPHOCYTES # (AUTO) 0.9 K/uL (1.0-4.8); LYMPHOCYTES % (AUTO) 10.6 % (22.0-44.0); MEAN CORPUSCULAR HEMOGLOBIN 32.7 pg (26.0-34.0); MEAN CORPUSCULAR HGB CONC 32.5 G/dL (31.0-37.0); MEAN CORPUSCULAR VOLUME 101 fL (80-100); MONOCYTES # (AUTO) 0.7 K/uL (0.1-1.0); NEUTROPHILS # (AUTO) 5.8 K/uL (1.8-7.7); NEUTROPHILS % (AUTO) 71.7 % (40.0-70.0); PLATELET COUNT (AUTO) 287 K/uL (150-450); RED BLOOD CELL COUNT(AUTO) 2.69 MIL/uL (4.50-5.90); RED CELL DISTRIBUTION WIDTH 14.4 % (11.5-14.5)
[2022-05-26] VITALS (11 sets, daily range): BP systolic 113–155; BP diastolic 57–80
[2022-05-26] MEDS: NITROGLYCERIN 0.3 MG SUBLINGUAL TABLET #100 SL PRN (05:11)
[2022-05-26] MEDS ORDERED: SODIUM CHLORIDE 0.9% 1,000 ML ONE ×2 (05:37)
[2022-05-26 06:17] LABS: BASOPHILS % (AUTO) 0.3 % (0.0-2.0); EOSINOPHILS % (AUTO) 7.1 % (1.0-6.0); HEMATOCRIT 27.8 % (41-53); HEMOGLOBIN 9.1 g/dL (13.5-17.5); LYMPHOCYTES # (AUTO) 0.9 K/uL (1.0-4.8); LYMPHOCYTES % (AUTO) 8.9 % (22.0-44.0); MEAN CORPUSCULAR HEMOGLOBIN 33.2 pg (26.0-34.0); MEAN CORPUSCULAR HGB CONC 32.8 G/dL (31.0-37.0); MEAN CORPUSCULAR VOLUME 101 fL (80-100); MONOCYTES # (AUTO) 0.6 K/uL (0.1-1.0); MONOCYTES % (AUTO) 6.2 % (2.0-9.0); NEUTROPHILS # (AUTO) 7.6 K/uL (1.8-7.7); NEUTROPHILS % (AUTO) 77.5 % (40.0-70.0); PLATELET COUNT (AUTO) 290 K/uL (150-450); RED BLOOD CELL COUNT(AUTO) 2.74 MIL/uL (4.50-5.90); RED CELL DISTRIBUTION WIDTH 14.2 % (11.5-14.5)
[2022-05-26] MEDS: PANTOPRAZOLE SODIUM 40 MG DR TABLET PO SCH (08:49)
[2022-05-26] MEDS: TICAGRELOR 90 MG TABLET PO SCH ×2 (09:00→20:58)
[2022-05-26] MEDS: ISOSORBIDE MONONITRATE 30 MG ER TABLET PO SCH (10:14)
[2022-05-26] MEDS: SEVELAMER CARBONATE 800 MG TABLET PO SCH ×3 (10:14→17:59)
[2022-05-26] MEDS: LOSARTAN POTASSIUM 50 MG TABLET PO SCH (10:15)
[2022-05-26] MEDS: CALCIUM ACETATE 667 MG CAPSULE PO SCH ×3 (10:15→17:59)
[2022-05-26] MEDS: RANOLAZINE 500 MG ER TABLET PO SCH ×2 (10:15→20:58)
[2022-05-26] MEDS: ASPIRIN 81 MG CHEWABLE TABLET PO SCH (10:17)
[2022-05-26] MEDS: ATORVASTATIN CALCIUM 40 MG TABLET PO SCH (10:17)
[2022-05-26] MEDS: CARVEDILOL 12.5 MG TABLET PO SCH ×2 (10:17→20:58)
[2022-05-26] MEDS: NIFEdipine 30 MG ER TABLET PO SCH ×2 (10:21→20:58)
[2022-05-26] MEDS: ALLOPURINOL 100 MG TABLET PO SCH (11:29)
[2022-05-26] MEDS: FOLIC ACID/VIT B COMPLEX AND C TABLET PO SCH (11:30)
[2022-05-26 14:36] LABS: GLUCOMETER DEV NAME(LOC) 5S.1B; GLUCOSE,POINT OF CARE 90 MG/DL (70-110)
[2022-05-26] MEDS: HEPARIN SODIUM 25000 UNITS/D5W 250 ML IV PRN (17:19)
[2022-05-27 00:19] VITALS: BP 133/86
[2022-05-27] MEDS: NITROGLYCERIN 0.3 MG SUBLINGUAL TABLET #100 SL PRN (01:41)
[2022-05-27 04:59] VITALS: BP 162/78
[2022-05-27 07:25] VITALS: BP 124/73
[2022-05-27] MEDS: SEVELAMER CARBONATE 800 MG TABLET PO SCH ×3 (08:19→17:55)
[2022-05-27] MEDS: CALCIUM ACETATE 667 MG CAPSULE PO SCH ×3 (08:19→17:55)
[2022-05-27] MEDS: ASPIRIN 81 MG CHEWABLE TABLET PO SCH (08:19)
[2022-05-27] MEDS: CARVEDILOL 12.5 MG TABLET PO SCH ×2 (08:20→20:48)
[2022-05-27] MEDS: TICAGRELOR 90 MG TABLET PO SCH ×2 (08:20→20:48)
[2022-05-27] MEDS: LOSARTAN POTASSIUM 50 MG TABLET PO SCH (08:20)
[2022-05-27] MEDS: ATORVASTATIN CALCIUM 40 MG TABLET PO SCH (08:21)
[2022-05-27] MEDS: NIFEdipine 30 MG ER TABLET PO SCH ×2 (08:21→20:48)
[2022-05-27] MEDS: ALLOPURINOL 100 MG TABLET PO SCH (08:21)
[2022-05-27] MEDS: FOLIC ACID/VIT B COMPLEX AND C TABLET PO SCH (08:21)
[2022-05-27] MEDS: RANOLAZINE 500 MG ER TABLET PO SCH ×2 (08:21→20:48)
[2022-05-27] MEDS: ISOSORBIDE MONONITRATE 30 MG ER TABLET PO SCH (08:21)
[2022-05-27] MEDS: PANTOPRAZOLE SODIUM 40 MG DR TABLET PO SCH (08:21)
[2022-05-27 11:45] VITALS: BP 93/68
[2022-05-27 15:54] VITALS: BP 126/62
[2022-05-27 20:23] VITALS: BP 145/69
[2022-05-28 01:01] VITALS: BP 148/70
[2022-05-28 04:32] VITALS: BP 127/85
[2022-05-28] MEDS: PANTOPRAZOLE SODIUM 40 MG DR TABLET PO SCH (06:04)
[2022-05-28 06:58] LABS: BASOPHILS % (AUTO) 0.3 % (0.0-2.0); EOSINOPHILS % (AUTO) 11.1 % (1.0-6.0); HEMATOCRIT 27.1 % (41-53); LYMPHOCYTES % (AUTO) 14.8 % (22.0-44.0); MEAN CORPUSCULAR HEMOGLOBIN 33.2 pg (26.0-34.0); MEAN CORPUSCULAR HGB CONC 33.2 G/dL (31.0-37.0); MEAN CORPUSCULAR VOLUME 100 fL (80-100); MONOCYTES # (AUTO) 0.6 K/uL (0.1-1.0); MONOCYTES % (AUTO) 8.2 % (2.0-9.0); NEUTROPHILS # (AUTO) 4.6 K/uL (1.8-7.7); NEUTROPHILS % (AUTO) 65.6 % (40.0-70.0); PLATELET COUNT (AUTO) 300 K/uL (150-450); RED BLOOD CELL COUNT(AUTO) 2.71 MIL/uL (4.50-5.90); RED CELL DISTRIBUTION WIDTH 14.6 % (11.5-14.5)
[2022-05-28 07:11] LABS: CALCIUM, TOTAL 9.5 mg/dL (8.8-10.5); CREATININE 9.48 mg/dL (0.60-1.30); POTASSIUM 5.4 mmol/L (3.5-5.1)
[2022-05-28 07:17] LABS: MAGNESIUM 2.5 mg/dL (1.80-2.40); PHOSPHORUS 3.2 mg/dL (2.5-4.9)
[2022-05-28 07:24] VITALS: BP 150/66
[2022-05-28 08:16] LABS: GLUCOMETER DEV NAME(LOC) 5S.1B; GLUCOSE,POINT OF CARE 95 MG/DL (70-110)
[2022-05-28] MEDS: FOLIC ACID/VIT B COMPLEX AND C TABLET PO SCH (10:05)
[2022-05-28] MEDS: NIFEdipine 30 MG ER TABLET PO SCH (10:06)
[2022-05-28] MEDS: CALCIUM ACETATE 667 MG CAPSULE PO SCH ×2 (10:06→13:54)
[2022-05-28] MEDS: ATORVASTATIN CALCIUM 40 MG TABLET PO SCH (10:07)
[2022-05-28] MEDS: ISOSORBIDE MONONITRATE 30 MG ER TABLET PO SCH (10:07)
[2022-05-28] MEDS: ALLOPURINOL 100 MG TABLET PO SCH (10:07)
[2022-05-28] MEDS: SEVELAMER CARBONATE 800 MG TABLET PO SCH ×2 (10:07→13:53)
[2022-05-28] MEDS: RANOLAZINE 500 MG ER TABLET PO SCH (10:08)
[2022-05-28] MEDS: CARVEDILOL 12.5 MG TABLET PO SCH (10:08)
[2022-05-28] MEDS: LOSARTAN POTASSIUM 50 MG TABLET PO SCH (10:08)
[2022-05-28] MEDS: ASPIRIN 81 MG CHEWABLE TABLET PO SCH (10:08)
[2022-05-28] MEDS: TICAGRELOR 90 MG TABLET PO SCH (10:09)
[2022-05-28 11:30] VITALS: BP 135/72
[2022-05-28 15:11] VITALS: BP 128/70
[2022-05-29] MEDS ORDERED: EPOETIN ALFA 10,000 UNITS/ML VIAL SQ SCH (09:00)
== END 2022-05-28 15:15 | disposition home or self-care (01) | DRG 280 ==
LOC: EMS 02:00 → AHU 07:09 → 5S 13:42
PROVIDERS: ADMIT Internal Medicine; ATTEND Internal Medicine
PROC: 5A1D70Z Performance of Urinary Filtration, Intermittent, Less than 6 Hours Per Day (ICD-10-PCS; principal; 2022-05-26)
DX: I21.4 Non-ST elevation (NSTEMI) myocardial infarction (principal); N18.6 End stage renal disease; I12.0 Hypertensive chronic kidney disease with stage 5 chronic kidney disease or end stage renal disease; E44.0 Moderate protein-calorie malnutrition; C64.9 Malignant neoplasm of unspecified kidney, except renal pelvis; E11.22 Type 2 diabetes mellitus with diabetic chronic kidney disease; D63.8 Anemia in other chronic diseases classified elsewhere; Z79.02 Long term (current) use of antithrombotics/antiplatelets; I25.10 Atherosclerotic heart disease of native coronary artery without angina pectoris; E11.40 Type 2 diabetes mellitus with diabetic neuropathy, unspecified; E11.319 Type 2 diabetes mellitus with unspecified diabetic retinopathy without macular edema; Z20.822 Contact with and (suspected) exposure to COVID-19; E78.5 Hyperlipidemia, unspecified; Z88.8 Allergy status to other drugs, medicaments and biological substances; Z91.041 Radiographic dye allergy status; Z79.899 Other long term (current) drug therapy; Z99.2 Dependence on renal dialysis; Z95.1 Presence of aortocoronary bypass graft; Z85.528 Personal history of other malignant neoplasm of kidney; Z95.5 Presence of coronary angioplasty implant and graft; I25.2 Old myocardial infarction; Z90.5 Acquired absence of kidney; Z68.24 Body mass index [BMI] 24.0-24.9, adult
CPT/HCPCS: 71045; 78582; 80048; 80053; 82962; 83735; 84100; 84484; 85025; 85610; 85730; 87081; 87340; 90935; 93005; 93306; 99291; A9539; A9540; J1170; J1644; J2270; J2405; J3490; J7030; 36415-L1; 36415-TC

== ENCOUNTER → 2022-06-22 | Outpatient (CLI) | payer MEDICARE, OTHER ==
[~2022-06-22] MED LIST changes: -LOSA-382 PO; -SIME80TA13 PO; -[UNRECOGNIZED DRUG - CODE] PO
[2022-06-22 08:44] VITALS: BP 116/58
== END | disposition home or self-care (01) ==
LOC: SRCNTR 08:31
PROVIDERS: ATTEND Internal Medicine
DX: I12.0 Hypertensive chronic kidney disease with stage 5 chronic kidney disease or end stage renal disease (principal); E11.22 Type 2 diabetes mellitus with diabetic chronic kidney disease; N18.6 End stage renal disease; Z09 Encounter for follow-up examination after completed treatment for conditions other than malignant neoplasm; I25.10 Atherosclerotic heart disease of native coronary artery without angina pectoris; Z99.2 Dependence on renal dialysis; Z95.1 Presence of aortocoronary bypass graft; Z90.5 Acquired absence of kidney
CPT/HCPCS: G0463; Z7500

== ENCOUNTER → 2022-07-11 | Outpatient (CLI) | payer MEDICARE, OTHER ==
[~2022-07-11] VITALS: Ht 167.6 cm; Wt 71.0 kg
[~2022-07-11] MED LIST changes: +LOSA-382 PO
[2022-07-11 15:16] VITALS: BP 84/41
== END | disposition home or self-care (01) ==
LOC: SRCNTR 14:56
PROVIDERS: ATTEND Internal Medicine
DX: I25.10 Atherosclerotic heart disease of native coronary artery without angina pectoris (principal); I25.2 Old myocardial infarction; I12.0 Hypertensive chronic kidney disease with stage 5 chronic kidney disease or end stage renal disease; E11.22 Type 2 diabetes mellitus with diabetic chronic kidney disease; N18.6 End stage renal disease; R91.1 Solitary pulmonary nodule; Z99.2 Dependence on renal dialysis; Z95.0 Presence of cardiac pacemaker; Z95.5 Presence of coronary angioplasty implant and graft; Z79.82 Long term (current) use of aspirin; Z79.899 Other long term (current) drug therapy; Z91.041 Radiographic dye allergy status
CPT/HCPCS: G0463; Z7500

== ENCOUNTER 2022-07-18 09:59 | Emergency (ER) | payer MEDICARE, OTHER ==
[~2022-07-18] VITALS: Ht 167.6 cm; Wt 71.0 kg
[2022-07-18] MEDS ORDERED: TICA90TA PO (10:03)
[2022-07-18 11:51] VITALS: BP 101/56
== END 2022-07-18 11:55 | disposition home or self-care (01) ==
LOC: EMS 10:15
DX: S60.412A Abrasion of right middle finger, initial encounter (principal); E11.9 Type 2 diabetes mellitus without complications; E11.22 Type 2 diabetes mellitus with diabetic chronic kidney disease; N18.6 End stage renal disease; Z99.2 Dependence on renal dialysis; Z98.890 Other specified postprocedural states; Z91.040 Latex allergy status; Z88.8 Allergy status to other drugs, medicaments and biological substances; X58.XXXA Exposure to other specified factors, initial encounter; Y93.89 Activity, other specified; Y92.89 Other specified places as the place of occurrence of the external cause; Y99.8 Other external cause status
CPT/HCPCS: 99281; Z7502

== ENCOUNTER → 2022-08-10 | Outpatient (CLI) | payer MEDICARE, OTHER ==
[~2022-08-10] VITALS: Ht 167.6 cm; Wt 69.7 kg
[2022-08-10 10:55] VITALS: BP 68/42
== END | disposition home or self-care (01) ==
LOC: SRCNTR 10:38
PROVIDERS: ATTEND Internal Medicine
DX: I13.2 Hypertensive heart and chronic kidney disease with heart failure and with stage 5 chronic kidney disease, or end stage renal disease (principal); I50.9 Heart failure, unspecified; N18.6 End stage renal disease; I25.10 Atherosclerotic heart disease of native coronary artery without angina pectoris; Z95.1 Presence of aortocoronary bypass graft; Z99.2 Dependence on renal dialysis
CPT/HCPCS: G0463; Z7500

== ENCOUNTER 2022-09-09 13:49 | Emergency (ER) | payer MEDICARE, OTHER ==
[~2022-09-09] VITALS: Ht 167.6 cm; Wt 71.0 kg
[2022-09-09] MEDS ORDERED: SODIUM CHLORIDE 0.9% 500 ML IV ONE (14:30)
[2022-09-09] MEDS ORDERED: SODIUM CHLORIDE 0.9% 1,000 ML IV ONE (14:30)
[2022-09-09 14:50] LABS: HEMATOCRIT 37.7 % (41-53); HEMOGLOBIN 12.3 g/dL (13.5-17.5); MEAN CORPUSCULAR HEMOGLOBIN 33.3 pg (26.0-34.0); MEAN CORPUSCULAR HGB CONC 32.6 G/dL (31.0-37.0); MEAN CORPUSCULAR VOLUME 102 fL (80-100); PLATELET COUNT (AUTO) 210 K/uL (150-450); RED BLOOD CELL COUNT(AUTO) 3.69 MIL/uL (4.50-5.90); RED CELL DISTRIBUTION WIDTH 14.3 % (11.5-14.5)
[2022-09-09 15:05] LABS: PROTHROMBIN TIME 10.3 SEC (9.4-11.6)
[2022-09-09 15:07] LABS: CALCIUM, TOTAL 9.3 mg/dL (8.8-10.5); CREATININE 10.3 mg/dL (0.60-1.30); POTASSIUM 5.2 mmol/L (3.5-5.1)
[2022-09-09 15:15] LABS: ALBUMIN 3.4 g/dL (3.4-5.0); BILIRUBIN,TOTAL 0.4 mg/dL (0.1-1.0); LACTIC ACID 0.7 mmol/L (0.4-2.0); TOTAL PROTEIN, SERUM 8.8 g/dL (6.4-8.2)
[2022-09-09 15:28] LABS: BAND NEUTROPHILS % (MANUAL) 0 % (0-5); EOSINOPHILS % (MANUAL) 7 % (1-6); LYMPHOCYTES % (MANUAL) 19 % (22-44); MONOCYTES % (MANUAL) 12 % (2-9); SEGMENTED NEUTROPHILS % 62 % (40-70)
[2022-09-09 17:08] VITALS: BP 106/62
== END 2022-09-09 17:49 | disposition home or self-care (01) ==
LOC: EMS 13:52
DX: I95.9 Hypotension, unspecified (principal); R07.9 Chest pain, unspecified; E11.22 Type 2 diabetes mellitus with diabetic chronic kidney disease; N18.6 End stage renal disease; I25.2 Old myocardial infarction; Z91.041 Radiographic dye allergy status; Z88.6 Allergy status to analgesic agent; Z99.2 Dependence on renal dialysis
CPT/HCPCS: 99285; 96360; 71045; 80053; 82962; 83605; 83880; 84484; 85025; 85610; 85730; 36415; 93005; J7030

== ENCOUNTER 2022-09-19 01:30 | Inpatient (IN) | payer MEDICARE, OTHER ==
[~2022-09-19] VITALS: Ht 167.6 cm; Wt 74.7 kg
[2022-09-19 02:08] LABS: BASOPHILS % (AUTO) 0.4 % (0.0-2.0); HEMATOCRIT 35.2 % (41-53); HEMOGLOBIN 11.7 g/dL (13.5-17.5); LYMPHOCYTES % (AUTO) 15.7 % (22.0-44.0); MEAN CORPUSCULAR HEMOGLOBIN 33.6 pg (26.0-34.0); MEAN CORPUSCULAR HGB CONC 33.1 G/dL (31.0-37.0); MEAN CORPUSCULAR VOLUME 101 fL (80-100); MONOCYTES # (AUTO) 0.6 K/uL (0.1-1.0); MONOCYTES % (AUTO) 8.5 % (2.0-9.0); NEUTROPHILS % (AUTO) 59.5 % (40.0-70.0); PLATELET COUNT (AUTO) 215 K/uL (150-450); RED BLOOD CELL COUNT(AUTO) 3.47 MIL/uL (4.50-5.90); RED CELL DISTRIBUTION WIDTH 14.1 % (11.5-14.5)
[2022-09-19 02:10] LABS: CALCIUM, TOTAL 9.2 mg/dL (8.8-10.5); CREATININE 8.99 mg/dL (0.60-1.30); EOSINOPHILS % (AUTO) 15.9 % (1.0-6.0); POTASSIUM 4.7 mmol/L (3.5-5.1)
[2022-09-19] MEDS ORDERED: ONDANSETRON HCL 4 MG/2 ML VIAL IVP ONE (02:15)
[2022-09-19] MEDS ORDERED: MORPHINE SULFATE 4 MG/ML SYRINGE IVP ONE (02:15)
[2022-09-19 02:17] LABS: PROTHROMBIN TIME 10.3 SEC (9.4-11.6)
[2022-09-19 02:25] LABS: ALBUMIN 3.2 g/dL (3.4-5.0); BILIRUBIN,TOTAL 0.4 mg/dL (0.1-1.0); TOTAL PROTEIN, SERUM 8.9 g/dL (6.4-8.2)
[2022-09-19] MEDS ORDERED: 0.9% SODIUM CHLORIDE 10 ML SYRINGE IVP PRN (03:30)
[2022-09-19] MEDS ORDERED: ONDANSETRON HCL 4 MG/2 ML VIAL IVP PRN ×2 (03:30→04:15)
[2022-09-19] MEDS ORDERED: ACETAMINOPHEN 325 MG TABLET PO PRN (03:30)
[2022-09-19 04:00] VITALS: BP 141/68
[2022-09-19] MEDS ORDERED: HEPARIN SODIUM 25000 UNITS/D5W 250 ML IV PRN (04:15)
[2022-09-19] MEDS ORDERED: HEPARIN SODIUM,PORCINE 5,000 UNITS/ML VIAL IVP PRN ×2 (04:15)
[2022-09-19] MEDS: CARVEDILOL 6.25 MG TABLET PO SCH ×2 (04:44→20:25)
[2022-09-19] MEDS ORDERED: ALLO-97 PO (05:55)
[2022-09-19] MEDS ORDERED: TICA90TA PO (05:55)
[2022-09-19] MEDS ORDERED: PANT-31 PO (05:55)
[2022-09-19] MEDS ORDERED: ATOR40TA28 PO (05:55)
[2022-09-19] MEDS ORDERED: CARV6 PO (05:55)
[2022-09-19] MEDS ORDERED: ASPI-1450 PO (05:55)
[2022-09-19] MEDS ORDERED: ISOS20TA9 PO (05:55)
[2022-09-19] MEDS: NITROGLYCERIN 0.3 MG SUBLINGUAL TABLET #100 SL PRN ×3 (06:34→22:00)
[2022-09-19 07:39] VITALS: BP 135/61
[2022-09-19] MEDS ORDERED: HEPARIN SODIUM,PORCINE 5,000 UNITS/ML VIAL SQ SCH (08:00)
[2022-09-19] MEDS: TICAGRELOR 90 MG TABLET PO SCH ×2 (08:09→20:25)
[2022-09-19] MEDS: PANTOPRAZOLE SODIUM 40 MG DR TABLET PO SCH (08:10)
[2022-09-19] MEDS: ATORVASTATIN CALCIUM 40 MG TABLET PO SCH (08:10)
[2022-09-19] MEDS: ALLOPURINOL 100 MG TABLET PO SCH (08:10)
[2022-09-19] MEDS: ASPIRIN 81 MG CHEWABLE TABLET PO SCH (08:10)
[2022-09-19 11:05] VITALS: BP 94/49
[2022-09-19] MEDS ORDERED: NIFE-78 PO (11:38)
[2022-09-19] MEDS ORDERED: DEXTROSE 50%-WATER 25 GM/50 ML SYRINGE IVP PRN (11:45)
[2022-09-19] MEDS: INSULIN LISPRO 100 UNITS/ML SQ PRN (11:53)
[2022-09-19] MEDS: SEVELAMER CARBONATE 800 MG TABLET PO SCH ×2 (12:00→18:00)
[2022-09-19 15:04] VITALS: BP 116/63
[2022-09-19 20:00] VITALS: BP 132/69
[2022-09-19 20:06] LABS: GLUCOMETER DEV NAME(LOC) 5N.1C; GLUCOSE,POINT OF CARE 97 MG/DL (70-110)
[2022-09-19 20:06] LABS: GLUCOMETER DEV NAME(LOC) 5N.1C; GLUCOSE,POINT OF CARE 147 MG/DL (70-110)
[2022-09-19] MEDS: ACETAMINOPHEN 325 MG TABLET PO PRN (22:05)
[2022-09-19] MEDS: HEPARIN SODIUM,PORCINE 5,000 UNITS/ML VIAL SQ SCH (23:32)
[2022-09-20] VITALS (15 sets, daily range): BP systolic 100–147; BP diastolic 53–77
[2022-09-20] MEDS: ACETAMINOPHEN 325 MG TABLET PO PRN (04:18)
[2022-09-20 06:06] LABS: GLUCOMETER DEV NAME(LOC) 5N.1C; GLUCOSE,POINT OF CARE 163 MG/DL (70-110)
[2022-09-20 06:42] LABS: BASOPHILS % (AUTO) 0.3 % (0.0-2.0); HEMOGLOBIN 11.7 g/dL (13.5-17.5); LYMPHOCYTES # (AUTO) 1.1 K/uL (1.0-4.8); LYMPHOCYTES % (AUTO) 17.9 % (22.0-44.0); MEAN CORPUSCULAR HEMOGLOBIN 33.9 pg (26.0-34.0); MEAN CORPUSCULAR HGB CONC 33.3 G/dL (31.0-37.0); MEAN CORPUSCULAR VOLUME 102 fL (80-100); MONOCYTES # (AUTO) 0.5 K/uL (0.1-1.0); MONOCYTES % (AUTO) 8.2 % (2.0-9.0); NEUTROPHILS # (AUTO) 3.6 K/uL (1.8-7.7); NEUTROPHILS % (AUTO) 56.6 % (40.0-70.0); PLATELET COUNT (AUTO) 206 K/uL (150-450); RED BLOOD CELL COUNT(AUTO) 3.44 MIL/uL (4.50-5.90); RED CELL DISTRIBUTION WIDTH 14.1 % (11.5-14.5)
[2022-09-20 06:55] LABS: CALCIUM, TOTAL 9.2 mg/dL (8.8-10.5); CREATININE 11.68 mg/dL (0.60-1.30); MAGNESIUM 2.4 mg/dL (1.80-2.40)
[2022-09-20 07:02] LABS: POTASSIUM 6.7 mmol/L (3.5-5.1)
[2022-09-20] MEDS: NITROGLYCERIN 0.3 MG SUBLINGUAL TABLET #100 SL PRN ×2 (07:44)
[2022-09-20] MEDS: PANTOPRAZOLE SODIUM 40 MG DR TABLET PO SCH (07:44)
[2022-09-20] MEDS: HEPARIN SODIUM,PORCINE 5,000 UNITS/ML VIAL SQ SCH ×2 (08:00→16:00)
[2022-09-20] MEDS: SEVELAMER CARBONATE 800 MG TABLET PO SCH ×4 (08:00→17:45)
[2022-09-20] MEDS: CARVEDILOL 6.25 MG TABLET PO SCH ×2 (09:00→21:02)
[2022-09-20] MEDS: ALLOPURINOL 100 MG TABLET PO SCH (09:17)
[2022-09-20] MEDS: ATORVASTATIN CALCIUM 40 MG TABLET PO SCH (09:17)
[2022-09-20] MEDS: TICAGRELOR 90 MG TABLET PO SCH ×2 (09:17→21:02)
[2022-09-20] MEDS: ASPIRIN 81 MG CHEWABLE TABLET PO SCH (09:17)
[2022-09-20] MEDS: INSULIN LISPRO 100 UNITS/ML SQ PRN (11:55)
[2022-09-20 15:11] LABS: GLUCOMETER DEV NAME(LOC) 5S.1B; GLUCOSE,POINT OF CARE 66 MG/DL (70-110)
[2022-09-20] MEDS ORDERED: CALC500T37 PO (17:52)
[2022-09-20] MEDS ORDERED: EPOE10003 SQ (17:52)
[2022-09-20] MEDS ORDERED: SIME80TA82 PO (17:52)
[2022-09-20 18:36] LABS: GLUCOMETER DEV NAME(LOC) 5S.1B; GLUCOSE,POINT OF CARE 88 MG/DL (70-110)
[2022-09-20 18:46] LABS: GLUCOMETER DEV NAME(LOC) 5N.2C; GLUCOSE,POINT OF CARE 163 MG/DL (70-110)
[2022-09-20 21:31] LABS: GLUCOMETER DEV NAME(LOC) 5S.1B; GLUCOSE,POINT OF CARE 138 MG/DL (70-110)
[2022-09-21] VITALS (15 sets, daily range): BP systolic 90–136; BP diastolic 20–68
[2022-09-21] MEDS: HEPARIN SODIUM,PORCINE 5,000 UNITS/ML VIAL SQ SCH ×3 (00:54→17:30)
[2022-09-21] MEDS ORDERED: PANTOPRAZOLE SODIUM 40 MG DR TABLET PO SCH (06:30)
[2022-09-21 06:32] LABS: CALCIUM, TOTAL 9.6 mg/dL (8.8-10.5); CREATININE 9.38 mg/dL (0.60-1.30); POTASSIUM 5.6 mmol/L (3.5-5.1)
[2022-09-21 07:36] LABS: GLUCOMETER DEV NAME(LOC) 5N.1C; GLUCOSE,POINT OF CARE 62 MG/DL (70-110)
[2022-09-21] MEDS: ASPIRIN 81 MG CHEWABLE TABLET PO SCH (09:23)
[2022-09-21] MEDS: SEVELAMER CARBONATE 800 MG TABLET PO SCH ×3 (09:23→18:02)
[2022-09-21] MEDS: ATORVASTATIN CALCIUM 40 MG TABLET PO SCH (09:24)
[2022-09-21] MEDS: TICAGRELOR 90 MG TABLET PO SCH ×2 (09:24→21:50)
[2022-09-21] MEDS: CARVEDILOL 6.25 MG TABLET PO SCH ×2 (09:49→21:50)
[2022-09-21] MEDS: ACETAMINOPHEN 325 MG TABLET PO PRN (09:49)
[2022-09-21] MEDS: ALLOPURINOL 100 MG TABLET PO SCH (10:47)
[2022-09-21] MEDS ORDERED: MAG HYDROX/AL HYDROX/SIMETH 30 ML SUSP UDCUP PO PRN (12:15)
[2022-09-21 12:26] LABS: GLUCOMETER DEV NAME(LOC) 5N.1C; GLUCOSE,POINT OF CARE 136 MG/DL (70-110)
[2022-09-21] MEDS ORDERED: SODIUM CHLORIDE 0.9% 2,000 ML ONE (13:47)
[2022-09-21 20:36] LABS: GLUCOMETER DEV NAME(LOC) 5S.1B; GLUCOSE,POINT OF CARE 110 MG/DL (70-110)
[2022-09-21] MEDS: PANTOPRAZOLE SODIUM 40 MG DR TABLET PO SCH (21:50)
[2022-09-22] MEDS: HEPARIN SODIUM,PORCINE 5,000 UNITS/ML VIAL SQ SCH ×2 (00:07→08:36)
[2022-09-22] MEDS: ACETAMINOPHEN 325 MG TABLET PO PRN (00:09)
[2022-09-22 00:11] LABS: GLUCOMETER DEV NAME(LOC) 5N.1C; GLUCOSE,POINT OF CARE 99 MG/DL (70-110)
[2022-09-22 04:16] VITALS: BP 90/58
[2022-09-22] MEDS: PANTOPRAZOLE SODIUM 40 MG DR TABLET PO SCH (06:19)
[2022-09-22 06:37] LABS: GLUCOMETER DEV NAME(LOC) 5N.2C; GLUCOSE,POINT OF CARE 60 MG/DL (70-110)
[2022-09-22 07:51] LABS: GLUCOMETER DEV NAME(LOC) 5N.2C; GLUCOSE,POINT OF CARE 106 MG/DL (70-110)
[2022-09-22 08:09] VITALS: BP 107/58
[2022-09-22] MEDS: ATORVASTATIN CALCIUM 40 MG TABLET PO SCH (08:36)
[2022-09-22] MEDS: SEVELAMER CARBONATE 800 MG TABLET PO SCH ×2 (08:36→12:16)
[2022-09-22] MEDS: TICAGRELOR 90 MG TABLET PO SCH (08:37)
[2022-09-22] MEDS: ALLOPURINOL 100 MG TABLET PO SCH (08:37)
[2022-09-22] MEDS: ASPIRIN 81 MG CHEWABLE TABLET PO SCH (08:37)
[2022-09-22] MEDS: CARVEDILOL 6.25 MG TABLET PO SCH (08:38)
[2022-09-22 08:45] LABS: BASOPHILS % (AUTO) 0.5 % (0.0-2.0); HEMATOCRIT 36.3 % (41-53); HEMOGLOBIN 11.7 g/dL (13.5-17.5); LYMPHOCYTES # (AUTO) 1.2 K/uL (1.0-4.8); LYMPHOCYTES % (AUTO) 19.4 % (22.0-44.0); MEAN CORPUSCULAR HEMOGLOBIN 32.7 pg (26.0-34.0); MEAN CORPUSCULAR HGB CONC 32.2 G/dL (31.0-37.0); MEAN CORPUSCULAR VOLUME 101 fL (80-100); MONOCYTES # (AUTO) 0.5 K/uL (0.1-1.0); MONOCYTES % (AUTO) 8.9 % (2.0-9.0); NEUTROPHILS % (AUTO) 49.9 % (40.0-70.0); PLATELET COUNT (AUTO) 232 K/uL (150-450); RED BLOOD CELL COUNT(AUTO) 3.58 MIL/uL (4.50-5.90); RED CELL DISTRIBUTION WIDTH 14.3 % (11.5-14.5)
[2022-09-22 08:47] LABS: EOSINOPHILS % (AUTO) 21.3 % (1.0-6.0)
[2022-09-22 08:52] LABS: CALCIUM, TOTAL 9.8 mg/dL (8.8-10.5); CREATININE 8.21 mg/dL (0.60-1.30)
[2022-09-22 11:22] VITALS: BP_SYST 104; BP_SYST 79; BP_DIAS 51; BP_DIAS 63
[2022-09-22] MEDS ORDERED: PANT-31 PO (12:28)
[2022-09-22] MEDS ORDERED: MAG30ORA11 PO (12:32)
[2022-09-22 14:25] LABS: GLUCOMETER DEV NAME(LOC) 5N.2C; GLUCOSE,POINT OF CARE 95 MG/DL (70-110)
[2022-09-22 15:49] VITALS: BP 94/50
== END 2022-09-22 16:05 | disposition home or self-care (01) | DRG 302 ==
LOC: EMS 01:32 → 5S 03:00
PROVIDERS: ADMIT Internal Medicine; ATTEND Internal Medicine
PROC: 5A1D70Z Performance of Urinary Filtration, Intermittent, Less than 6 Hours Per Day (ICD-10-PCS; principal; 2022-09-20)
PROC: 5A1D70Z Performance of Urinary Filtration, Intermittent, Less than 6 Hours Per Day (ICD-10-PCS; 2022-09-22)
DX: I25.118 Atherosclerotic heart disease of native coronary artery with other forms of angina pectoris (principal); N18.6 End stage renal disease; I12.0 Hypertensive chronic kidney disease with stage 5 chronic kidney disease or end stage renal disease; N25.81 Secondary hyperparathyroidism of renal origin; E87.1 Hypo-osmolality and hyponatremia; E11.22 Type 2 diabetes mellitus with diabetic chronic kidney disease; D63.1 Anemia in chronic kidney disease; E11.51 Type 2 diabetes mellitus with diabetic peripheral angiopathy without gangrene; E87.5 Hyperkalemia; E78.5 Hyperlipidemia, unspecified; E87.70 Fluid overload, unspecified; K21.9 Gastro-esophageal reflux disease without esophagitis; E83.39 Other disorders of phosphorus metabolism; Z63.4 Disappearance and death of family member; Z79.02 Long term (current) use of antithrombotics/antiplatelets; Z79.82 Long term (current) use of aspirin; Z85.528 Personal history of other malignant neoplasm of kidney; Z99.2 Dependence on renal dialysis; Z95.5 Presence of coronary angioplasty implant and graft; Z87.891 Personal history of nicotine dependence; Z90.5 Acquired absence of kidney; Z91.041 Radiographic dye allergy status; Z79.899 Other long term (current) drug therapy; Z88.8 Allergy status to other drugs, medicaments and biological substances
CPT/HCPCS: 71045; 80048; 80053; 82550; 82962; 83735; 83880; 84484; 85025; 85610; 85730; 87081; 87340; 90935; 93005; 99291; J1644; J2270; J2405; J7030; 36415-L1; 36415-TC

== ENCOUNTER 2022-10-18 23:44 | Emergency (ER) | payer MEDICARE, OTHER ==
[~2022-10-18] VITALS: Ht 167.6 cm; Wt 75.0 kg
[~2022-10-18 23:44] MED LIST changes: +ALLO-97 PO; -ALLO100T PO; +ASPI-1450 PO; -ASPI81 PO; +ATOR40TA28 PO; -ATOR40TA71 PO; +CALC500T37 PO; -CALC667T8 PO; -CARV12 PO; +CARV6 PO; -FOLI0.8T2 PO; -HYPR15DR23 OU; +ISOS20TA9 PO; -ISOS30TA92 PO; -LANC1KIT37 MC; -LOSA-382 PO; +MAG30ORA11 PO; -NIFE-40 PO; -POLY250020 PO; -SEVE800T17 PO; +SIME80TA82 PO; -SYRI-590 SQ
[2022-10-18] MEDS ORDERED: METO25 PO (23:53)
[2022-10-19 00:13] LABS: GLUCOMETER DEV NAME(LOC) ERT.5
[2022-10-19 00:38] LABS: LYMPHOCYTES # (AUTO) 1.1 K/uL (1.0-4.8); MONOCYTES # (AUTO) 0.7 K/uL (0.1-1.0)
[2022-10-19 00:45] LABS: BASOPHILS % (AUTO) 0.4 % (0.0-2.0); HEMOGLOBIN 10.6 g/dL (13.5-17.5); LYMPHOCYTES % (AUTO) 15.7 % (22.0-44.0); MEAN CORPUSCULAR HGB CONC 33.2 G/dL (31.0-37.0); MEAN CORPUSCULAR VOLUME 102 fL (80-100); NEUTROPHILS # (AUTO) 4.1 K/uL (1.8-7.7); NEUTROPHILS % (AUTO) 57.8 % (40.0-70.0); PLATELET COUNT (AUTO) 190 K/uL (150-450); RED BLOOD CELL COUNT(AUTO) 3.13 MIL/uL (4.50-5.90); RED CELL DISTRIBUTION WIDTH 14.5 % (11.5-14.5)
[2022-10-19 00:47] LABS: CALCIUM, TOTAL 8.8 mg/dL (8.8-10.5); CREATININE 7.67 mg/dL (0.60-1.30); POTASSIUM 4.9 mmol/L (3.5-5.1)
[2022-10-19 00:52] LABS: PROTHROMBIN TIME 10.2 SEC (9.4-11.6)
[2022-10-19 00:53] LABS: ALBUMIN 3.2 g/dL (3.4-5.0); BILIRUBIN,TOTAL 0.3 mg/dL (0.1-1.0); TOTAL PROTEIN, SERUM 8.2 g/dL (6.4-8.2)
[2022-10-19 01:02] LABS: EOSINOPHILS % (AUTO) 16.1 % (1.0-6.0)
[2022-10-19] MEDS ORDERED: ACETAMINOPHEN 500 MG TABLET ONE (01:11)
[2022-10-19] MEDS ORDERED: ACETAMINOPHEN 500 MG TABLET PO ONE (01:15)
[2022-10-19 05:02] VITALS: BP 112/67; PULSE 92; RESP 28; TEMP 98
== END 2022-10-19 05:00 | disposition home or self-care (01) ==
LOC: EMS 23:46
DX: R07.89 Other chest pain (principal); I20.8 Other forms of angina pectoris; E11.22 Type 2 diabetes mellitus with diabetic chronic kidney disease; N18.6 End stage renal disease; I13.11 Hypertensive heart and chronic kidney disease without heart failure, with stage 5 chronic kidney disease, or end stage renal disease; Z99.2 Dependence on renal dialysis; Z98.890 Other specified postprocedural states
CPT/HCPCS: 71045; 80053; 82550; 82962; 83880; 84484; 85025; 85610; 85730; 93005; 99285; 36415-L1; 36415-TC

== ENCOUNTER 2022-10-22 21:09 | Inpatient (IN) | payer MEDICARE, OTHER ==
[~2022-10-22] VITALS: Ht 167.6 cm; Wt 78.6 kg
[~2022-10-22 21:09] MED LIST changes: -CARV6 PO; +METO25 PO
[2022-10-23] VITALS (14 sets, daily range): BP systolic 112–150; BP diastolic 56–86; PULSE 61–82; RESP 18–29; TEMP 97.7–98.7
[2022-10-23 00:13] LABS: BASOPHILS % (AUTO) 0.5 % (0.0-2.0); HEMOGLOBIN 11.1 g/dL (13.5-17.5); RED BLOOD CELL COUNT(AUTO) 3.28 MIL/uL (4.50-5.90)
[2022-10-23 00:16] LABS: HEMATOCRIT 33.5 % (41-53); LYMPHOCYTES # (AUTO) 1.3 K/uL (1.0-4.8); LYMPHOCYTES % (AUTO) 17.6 % (22.0-44.0); MEAN CORPUSCULAR HEMOGLOBIN 33.7 pg (26.0-34.0); MEAN CORPUSCULAR HGB CONC 33.1 G/dL (31.0-37.0); MEAN CORPUSCULAR VOLUME 102 fL (80-100); MONOCYTES # (AUTO) 0.4 K/uL (0.1-1.0); MONOCYTES % (AUTO) 5.8 % (2.0-9.0); NEUTROPHILS # (AUTO) 4.1 K/uL (1.8-7.7); NEUTROPHILS % (AUTO) 56.5 % (40.0-70.0); PLATELET COUNT (AUTO) 206 K/uL (150-450); RED CELL DISTRIBUTION WIDTH 14.7 % (11.5-14.5)
[2022-10-23 00:18] LABS: EOSINOPHILS % (AUTO) 19.6 % (1.0-6.0)
[2022-10-23 00:41] LABS: ALBUMIN 3.7 g/dL (3.4-5.0); BILIRUBIN,TOTAL 0.4 mg/dL (0.1-1.0); CALCIUM, TOTAL 9.3 mg/dL (8.8-10.5); CREATININE 12.75 mg/dL (0.60-1.30); MAGNESIUM 3.8 mg/dL (1.80-2.40); PHOSPHORUS 5.3 mg/dL (2.5-4.9); TOTAL PROTEIN, SERUM 8.9 g/dL (6.4-8.2)
[2022-10-23 00:44] LABS: POTASSIUM 6.4 mmol/L (3.5-5.1)
[2022-10-23] MEDS ORDERED: CALCIUM GLUCONATE 100 MG/ML 10 ML IVP ONE (00:45)
[2022-10-23] MEDS ORDERED: 0.9% SODIUM CHLORIDE 10 ML SYRINGE IVP PRN (01:15)
[2022-10-23] MEDS ORDERED: ACETAMINOPHEN 325 MG TABLET PO PRN ×2 (01:15→11:30)
[2022-10-23] MEDS ORDERED: ONDANSETRON HCL 4 MG/2 ML VIAL IVP PRN ×3 (01:15→11:30)
[2022-10-23] MEDS: NITROGLYCERIN 0.4 MG SUBLINGUAL TABLET #25 SL PRN ×4 (04:24→20:16)
[2022-10-23] MEDS ORDERED: PANTOPRAZOLE SODIUM 40 MG DR TABLET PO SCH (09:00)
[2022-10-23] MEDS: ASPIRIN 81 MG CHEWABLE TABLET PO SCH (09:28)
[2022-10-23] MEDS: METOPROLOL TARTRATE 25 MG TABLET PO SCH ×2 (09:28→20:15)
[2022-10-23] MEDS: ATORVASTATIN CALCIUM 40 MG TABLET PO SCH (09:28)
[2022-10-23] MEDS: RANOLAZINE 500 MG ER TABLET PO SCH ×2 (09:29→20:15)
[2022-10-23] MEDS: TICAGRELOR 90 MG TABLET PO SCH ×2 (09:29→20:15)
[2022-10-23] MEDS: ISOSORBIDE MONONITRATE 60 MG ER TABLET PO SCH (09:29)
[2022-10-23] MEDS ORDERED: HYDROCODONE/ACETAMINOPHEN 5-325 MG TABLET PO PRN ×2 (11:30)
[2022-10-23] MEDS ORDERED: MAGNESIUM HYDROXIDE SUSPENSION 30 ML UDCUP PO PRN ×2 (11:30)
[2022-10-23] MEDS ORDERED: ZOLPIDEM TARTRATE 5 MG TABLET PO PRN ×2 (11:30)
[2022-10-23] MEDS ORDERED: IPRATROPIUM BROMIDE 0.5 MG/2.5 ML NEB SOLUTION NEB PRN ×2 (11:30)
[2022-10-23] MEDS ORDERED: ALBUTEROL SULFATE 2.5 MG/0.5 ML NEB SOLUTION NEB PRN ×2 (11:30)
[2022-10-23] MEDS ORDERED: BISACODYL 10 MG RECTAL RECTAL SUPPOSITORY PR PRN ×2 (11:30)
[2022-10-23] MEDS ORDERED: MORPHINE SULFATE 2 MG/ML SYRINGE IVP PRN (11:30)
[2022-10-23] MEDS ORDERED: METO-408 PO (11:30)
[2022-10-23] MEDS ORDERED: NIFE10CA50 PO (11:30)
[2022-10-23] MEDS ORDERED: RANO500T27 PO (11:30)
[2022-10-23] MEDS: CALCIUM ACETATE 667 MG CAPSULE PO SCH ×2 (12:33→18:01)
[2022-10-23] MEDS ORDERED: HEPARIN SODIUM,PORCINE 5,000 UNITS/ML VIAL SQ SCH (16:00)
[2022-10-23] MEDS: HEPARIN SODIUM,PORCINE 5,000 UNITS/ML VIAL SQ SCH (16:58)
[2022-10-23] MEDS: ACETAMINOPHEN 325 MG TABLET PO PRN (18:04)
[2022-10-23] MEDS: DOCUSATE SODIUM 100 MG CAPSULE PO SCH (20:15)
[2022-10-23] MEDS ORDERED: DOCUSATE SODIUM 100 MG CAPSULE PO SCH (21:00)
[2022-10-23] MEDS: MORPHINE SULFATE 2 MG/ML SYRINGE IVP PRN (22:08)
[2022-10-24] VITALS (11 sets, daily range): BP systolic 90–136; BP diastolic 46–82; PULSE 62–81; RESP 18–20; TEMP 97.7–98
[2022-10-24] MEDS: HEPARIN SODIUM,PORCINE 5,000 UNITS/ML VIAL SQ SCH ×3 (00:01→15:50)
[2022-10-24] MEDS: NITROGLYCERIN 0.4 MG SUBLINGUAL TABLET #25 SL PRN ×2 (06:26→17:35)
[2022-10-24] MEDS ORDERED: PANTOPRAZOLE SODIUM 40 MG DR TABLET PO SCH (06:30)
[2022-10-24 06:55] LABS: BASOPHILS % (AUTO) 0.5 % (0.0-2.0); HEMATOCRIT 34.8 % (41-53); HEMOGLOBIN 11.6 g/dL (13.5-17.5); LYMPHOCYTES # (AUTO) 1.5 K/uL (1.0-4.8); LYMPHOCYTES % (AUTO) 21.1 % (22.0-44.0); MEAN CORPUSCULAR HEMOGLOBIN 33.8 pg (26.0-34.0); MEAN CORPUSCULAR HGB CONC 33.2 G/dL (31.0-37.0); MEAN CORPUSCULAR VOLUME 102 fL (80-100); MONOCYTES # (AUTO) 0.4 K/uL (0.1-1.0); MONOCYTES % (AUTO) 6.5 % (2.0-9.0); NEUTROPHILS # (AUTO) 3.6 K/uL (1.8-7.7); PLATELET COUNT (AUTO) 232 K/uL (150-450); RED BLOOD CELL COUNT(AUTO) 3.43 MIL/uL (4.50-5.90); RED CELL DISTRIBUTION WIDTH 14.6 % (11.5-14.5)
[2022-10-24 07:01] LABS: EOSINOPHILS % (AUTO) 19.9 % (1.0-6.0)
[2022-10-24 07:10] LABS: ALBUMIN 3.4 g/dL (3.4-5.0); BILIRUBIN,TOTAL 0.5 mg/dL (0.1-1.0); CALCIUM, TOTAL 8.8 mg/dL (8.8-10.5); CREATININE 9.72 mg/dL (0.60-1.30); TOTAL PROTEIN, SERUM 8.6 g/dL (6.4-8.2)
[2022-10-24] MEDS: DOCUSATE SODIUM 100 MG CAPSULE PO SCH (08:08)
[2022-10-24] MEDS: CALCIUM ACETATE 667 MG CAPSULE PO SCH ×3 (08:08→17:53)
[2022-10-24] MEDS: ISOSORBIDE MONONITRATE 60 MG ER TABLET PO SCH (08:09)
[2022-10-24] MEDS: ATORVASTATIN CALCIUM 40 MG TABLET PO SCH (08:10)
[2022-10-24] MEDS: RANOLAZINE 500 MG ER TABLET PO SCH (08:11)
[2022-10-24] MEDS: TICAGRELOR 90 MG TABLET PO SCH (08:11)
[2022-10-24] MEDS: ASPIRIN 81 MG CHEWABLE TABLET PO SCH (08:11)
[2022-10-24] MEDS: METOPROLOL TARTRATE 25 MG TABLET PO SCH (08:12)
[2022-10-24] MEDS ORDERED: ALLOPURINOL 100 MG TABLET PO SCH ×2 (09:00)
[2022-10-24] MEDS ORDERED: ISOSORBIDE MONONITRATE 30 MG ER TABLET PO SCH (09:00)
[2022-10-24] MEDS ORDERED: ISOSORBIDE MONONITRATE 30 MG ER TABLET PO ONE (09:30)
[2022-10-24] MEDS ORDERED: METO25 PO (17:31)
[2022-10-24] MEDS ORDERED: ISOS30TA92 PO (17:31)
[2022-10-24] MEDS: ACETAMINOPHEN 325 MG TABLET PO PRN (17:53)
[2022-10-25] MEDS ORDERED: ISOSORBIDE MONONITRATE 30 MG ER TABLET PO SCH (09:00)
== END 2022-10-24 18:45 | disposition home or self-care (01) | DRG 291 ==
LOC: EMS 21:10 → 5N 10-23 01:27
PROVIDERS: ADMIT Hospitalist; ATTEND Hospitalist
PROC: 5A1D70Z Performance of Urinary Filtration, Intermittent, Less than 6 Hours Per Day (ICD-10-PCS; principal; 2022-10-23)
PROC: 5A1D70Z Performance of Urinary Filtration, Intermittent, Less than 6 Hours Per Day (ICD-10-PCS; 2022-10-24)
DX: I13.2 Hypertensive heart and chronic kidney disease with heart failure and with stage 5 chronic kidney disease, or end stage renal disease (principal); I50.33 Acute on chronic diastolic (congestive) heart failure; N18.6 End stage renal disease; E87.5 Hyperkalemia; I25.119 Atherosclerotic heart disease of native coronary artery with unspecified angina pectoris; K21.9 Gastro-esophageal reflux disease without esophagitis; E78.5 Hyperlipidemia, unspecified; D63.1 Anemia in chronic kidney disease; E11.22 Type 2 diabetes mellitus with diabetic chronic kidney disease; M10.9 Gout, unspecified; E11.51 Type 2 diabetes mellitus with diabetic peripheral angiopathy without gangrene; R91.8 Other nonspecific abnormal finding of lung field; I25.2 Old myocardial infarction; Z90.5 Acquired absence of kidney; Z87.891 Personal history of nicotine dependence; Z85.528 Personal history of other malignant neoplasm of kidney; Z99.2 Dependence on renal dialysis; Z95.5 Presence of coronary angioplasty implant and graft; Z95.1 Presence of aortocoronary bypass graft; Z91.041 Radiographic dye allergy status; Z88.8 Allergy status to other drugs, medicaments and biological substances; Z79.899 Other long term (current) drug therapy; Z79.82 Long term (current) use of aspirin
CPT/HCPCS: 71045; 80053; 82550; 83735; 83880; 84100; 84484; 85025; 87081; 87340; 90935; 93005; 99285; J0610; J1644; J2270; 36415-L1; 36415-TC

== ENCOUNTER → 2022-11-28 | Outpatient (CLI) | payer MEDICARE, OTHER ==
[~2022-11-28] VITALS: Ht 167.6 cm; Wt 73.0 kg
[~2022-11-28] MED LIST changes: +ASPI81 PO; +ATOR40TA71 PO; -ISOS20TA9 PO; +ISOS30TA92 PO; -MAG30ORA11 PO; +METO-391 PO; -METO25 PO; +RANO500T27 PO
[2022-11-28 15:53] VITALS: BP 89/63; PULSE 72; RESP 16; TEMP 98.6; O2SAT 100
== END | disposition home or self-care (01) ==
LOC: SRCNTR 14:42
PROVIDERS: ATTEND Internal Medicine
DX: I13.0 Hypertensive heart and chronic kidney disease with heart failure and stage 1 through stage 4 chronic kidney disease, or unspecified chronic kidney disease (principal); I25.10 Atherosclerotic heart disease of native coronary artery without angina pectoris; N18.6 End stage renal disease; E11.22 Type 2 diabetes mellitus with diabetic chronic kidney disease; D64.9 Anemia, unspecified; K92.1 Melena; I50.33 Acute on chronic diastolic (congestive) heart failure; R91.8 Other nonspecific abnormal finding of lung field; E87.6 Hypokalemia; I34.0 Nonrheumatic mitral (valve) insufficiency; Z79.82 Long term (current) use of aspirin; Z79.899 Other long term (current) drug therapy; Z88.8 Allergy status to other drugs, medicaments and biological substances
CPT/HCPCS: G0463; Z7500

== ENCOUNTER 2023-05-14 10:34 | Emergency (ER) | payer MEDICARE, OTHER ==
[~2023-05-14] VITALS: Ht 167.6 cm; Wt 76.2 kg
[~2023-05-14 10:34] MED LIST changes: -ASPI-1450 PO; -ATOR40TA28 PO; +CETI-450 PO; +CLOB15OI17 TP; +DEXT30DR5 OU; +MAG30ORA11 PO; +PRED-549 PO; +PRED-554 PO; +PRED-729 PO; +SEVE800T7 PO
[2023-05-14 10:52] VITALS: TEMP 97.9
[2023-05-14] MEDS ORDERED: ASPI-1444 PO (11:31)
[2023-05-14 12:05] LABS: CREATININE 12.61 mg/dL (0.60-1.30); POTASSIUM 4.9 mmol/L (3.5-5.1)
[2023-05-14 13:00] VITALS: BP 135/65; PULSE 70; RESP 16
[2023-05-14] MEDS ORDERED: SODIUM ZIRCONIUM CYCLOSILICATE 5 GM POWDER PACKET PO ONE (13:00)
== END 2023-05-14 13:51 | disposition home or self-care (01) ==
LOC: EMS 10:34
DX: N19 Unspecified kidney failure (principal); M19.90 Unspecified osteoarthritis, unspecified site; Z98.890 Other specified postprocedural states; Z91.040 Latex allergy status; Z88.8 Allergy status to other drugs, medicaments and biological substances
CPT/HCPCS: 99283; 80048; 82962; 36415; Q9967

== ENCOUNTER → 2023-05-29 | Outpatient (CLI) | payer MEDICARE, OTHER ==
[~2023-05-29] VITALS: Ht 167.6 cm; Wt 73.0 kg
[~2023-05-29] MED LIST changes: +ASPI-1444 PO; -ASPI81 PO
[2023-05-29 14:33] VITALS: BP 132/76; PULSE 71; RESP 15; TEMP 98.3; O2SAT 98
== END | disposition home or self-care (01) ==
LOC: SRCNTR 14:08
PROVIDERS: ATTEND Internal Medicine
DX: Z09 Encounter for follow-up examination after completed treatment for conditions other than malignant neoplasm (principal); I25.112 Atherosclerotic heart disease of native coronary artery with refractory angina pectoris; I13.2 Hypertensive heart and chronic kidney disease with heart failure and with stage 5 chronic kidney disease, or end stage renal disease; I50.33 Acute on chronic diastolic (congestive) heart failure; E11.22 Type 2 diabetes mellitus with diabetic chronic kidney disease; N18.6 End stage renal disease; Z99.2 Dependence on renal dialysis; Z95.1 Presence of aortocoronary bypass graft
CPT/HCPCS: G0463